=== PATIENT | female | born 1990 | race Caucasian/White ===

== ENCOUNTER 2020-09-02 15:11 | Outpatient (REF) | payer OTHER, SELFPAY ==
[2020-09-02 15:31] LABS: MANUAL DIFF FLAG NO
[2020-09-02 15:35] LABS: Basophils Absolute Auto 0.1 X10*3/uL (0.0-0.2); Basophils Percent Auto 0.7 % (0-2); Eosinophils Absolute Auto 0.3 X10*3/uL (0.0-0.4); Eosinophils Percent Auto 2.4 % (0-4); Hematocrit 41.1 % (37-47); Hemoglobin 13.6 g/dl (12.0-16.0); Imm Gran Abs Auto 0.03 X10*3/uL (0.00-0.03); Imm Gran Pct Auto 0.3 % (0.0-0.4); Lymphocytes Absolute Auto 3.5 X10*3/uL (1.2-4.9); Lymphocytes Percent Auto 32.1 % (20-40); Mean Corpuscular HGB Conc 33.1 g/dl (31.0-35.0); Mean Corpuscular Volume 90.7 fL (80-98); Mean Platelet Volume 10.4 fL (9.4-12.3); Monocytes Absolute Auto 0.8 X10*3/uL (0.1-1.2); Monocytes Percent Auto 7.1 % (2-11); Neutrophils Absolute Auto 6.2 X10*3/uL (2.0-8.3); Neutrophils Percent Auto 57.4 % (45-73); Platelet Count 327 X10*3/uL (160-400); Red Blood Count 4.53 X10*6/uL (4.20-5.50); Red Cell Distribution Width 12.6 % (11.0-16.0); White Blood Count 10.8 X10*3/uL (4.8-10.8)
[2020-09-02 15:56] LABS: Alanine Aminotransferase 15 U/L (0-31); Albumin Level 4.4 g/dL (3.5-5.0); Alkaline Phosphatase 77 U/L (39-117); Anion Gap 12 (12-20); Aspartate Amino Transferase 10 U/L (5-31); Bilirubin Total 0.2 mg/dL (0.0-1.0); Blood Urea Nitrogen 10 mg/dL (9-16); C Reactive Protein 1.72 mg/dL (< or = 0.50); Calcium 9.8 mg/dL (8.4-10.2); Carbon Dioxide 27 mmol/L (22-29); Chloride 103 mmol/L (96-108); Estimated Glomerular Filt Rate > 60; Glucose Random 105 mg/dL (60-115); Potassium 4.3 mmol/L (3.3-5.1); Sodium 138 mmol/L (135-145); Total Protein 7.5 g/dL (6.5-8.0)
[2020-09-02 16:17] LABS: Ferritin 120 ng/mL (10-122); TSH reflex Free T4 0.98 uIU/mL (0.32-4.0)
[2020-09-02 16:48] LABS: Erythrocyte Sedimentation Rate 5 MM/HR (0-20)
[2020-09-03 14:02] LABS: IgA 404 mg/dL (47-310); IgG 1142 mg/dL (600-1640); IgM 67 mg/dL (50-300)
[2020-09-03 21:46] LABS: Transglutaminase Ab IgG 1 U/mL; Transglutaminase IgA 1 U/mL
[2020-09-07 23:36] LABS: Histamine Plasma 1.5 ng/mL (< OR = 1.8)
== END 2020-09-02 15:12 | disposition home or self-care (01) ==
LOC: HO.LAB 15:11
PROVIDERS: Visit Provider Internal Medicine Gastroenterology
DX: R10.33 Periumbilical pain (principal); G89.29 Other chronic pain; K75.81 Nonalcoholic steatohepatitis (NASH); R19.7 Diarrhea, unspecified
CPT/HCPCS: 36415; 80053; 82728; 82784; 83088; 83516; 83520; 84443; 85025; 85652; 86140

== ENCOUNTER 2020-09-07 17:33 | Outpatient (REF) | payer OTHER, SELFPAY ==
[2020-09-08 08:40] LABS: CDIFF Ag Negative (Negative); CDIFF Internal ctrl Dots and bkg OK (V); CDiff Toxin Negative (Negative)
[2020-09-11 01:25] LABS: Fecal Fat Qualitative Abnormal (Normal)
[2020-09-15 21:48] LABS: Calprotectin, Fecal 7 mcg/g
== END 2020-09-07 17:34 | disposition home or self-care (01) ==
LOC: HO.LNP 17:33
PROVIDERS: Visit Provider Internal Medicine Gastroenterology
DX: R19.7 Diarrhea, unspecified (principal)
CPT/HCPCS: 82705; 83993; 87324; 87329; 87449

== ENCOUNTER 2020-10-13 09:39 | Day surgery (SDC) | payer OTHER, SELFPAY ==
[2020-10-06 14:35] VITALS: BMI 40.6
--- NOTE | 2020-10-12 10:48 | P.CONAN_ITS ---
Documented by User: Marysol Donohue 10/12/20 10:49 HPI - Anesthesia Eval Consult details Narrative: 30yo F for Upper Endoscopy and Colonoscopy PMFSH Active Problems Active Problems: All Active Problems (Updated 10/06/20 @ 14:39 by Kaye Monzon) Diarrhea (Acute) Past Medical History Medical History (Updated 10/06/20 @ 14:39 by Kaye Monzon) Anemia Arthritis Concussion COVID-19 vaccine administered Degenerative lumbar disc Depression GERD (gastroesophageal reflux disease) Heavy menstrual bleeding High cholesterol Hx of renal calculi Kidney stones Mood swings Nasal inflammation Obesity Panic attacks Rheumatoid arthritis Severe anxiety Tobacco use Vitamin D deficiency Surgical History Surgical History (Updated 07/20/20 @ 14:55 by JAMES Molina) H/O tooth extraction Social History Social History Patient Tobacco Use Status: Former Tobacco user Quit Date: 2019 Tobacco use type: Cigarette Years Smoked: 7 Use of substances other than those prescribed or required for medical reasons: No Substance Use Frequency: Daily Have you been hit, kicked, punched, or otherwise hurt by someone within the past year? If so, by whom?: No Are you DNR?: No Advance Directives: No Advance Directives Information Provided: No Advance Directives on File: No Recently lost weight without trying: No Eating poorly because of decreased appetite: No Nutrition Risks: No Nutritional Risk Patient : No FDLMP: 10/05/20 : No Poor oral hygiene: No (upper partial) Meds Allergies Allergy/AdvReac Type Severity Reaction Status Date / Time No Known Allergies Allergy Verified 10/06/20 14:40 Home Medications Medication Instructions Recorded Confirmed Last Taken Type cyanocobalamin (vitamin B-12) 50 mcg PO DAILY 10/06/20 10/06/20 Unknown History [Vitamin B-12] hydroxyzine pamoate 25 mg PO BEDTIME 10/06/20 10/06/20 Unknown History loratadine 10 mg PO DAILY 10/06/20 10/06/20 Unknown History multivitamin 1 tab PO DAILY 10/06/20 10/06/20 Unknown History norgestrel-ethinyl estradiol 1 tab PO DAILY 10/06/20 10/06/20 Unknown History [Edu (28)] phenylephrine HCl [Sudafed PE] 10 mg PO DAILY 10/06/20 10/06/20 Unknown History Exam Exam Date and Time: October 12, 2020 1048 Height,Weight and Vital Signs: Height 5 ft 4 in Weight 107.501 kg Assessment and Plan Assessment Anesthesia Assessment: Chart Reviewed Documented by User: Carin Hogue 10/13/20 10:49 [facility] Past Medical History Medical History (Updated 10/06/20 @ 14:39 by Kaye Monzon) Anemia Arthritis Concussion COVID-19 vaccine administered Degenerative lumbar disc Depression GERD (gastroesophageal reflux disease) Heavy menstrual bleeding High cholesterol Hx of renal calculi Kidney stones Mood swings Nasal inflammation Obesity Panic attacks Rheumatoid arthritis Severe anxiety Tobacco use Vitamin D deficiency Surgical History Surgical History (Updated 07/20/20 @ 14:55 by JAMES Molina) H/O tooth extraction Social History Social History Patient Tobacco Use Status: Former Tobacco user Quit Date: 2019 Tobacco use type: Cigarette Years Smoked: 7 Use of substances other than those prescribed or required for medical reasons: No Substance Use Frequency: Daily Have you been hit, kicked, punched, or otherwise hurt by someone within the past year? If so, by whom?: No Are you DNR?: No Advance Directives: No Advance Directives Information Provided: No Advance Directives on File: No Recently lost weight without trying: No Eating poorly because of decreased appetite: No Nutrition Risks: No Nutritional Risk Patient : No FDLMP: 10/05/20 : No Poor oral hygiene: No (upper partial) Meds Allergies Allergy/AdvReac Type Severity Reaction Status Date / Time No Known Allergies Allergy Verified 10/06/20 14:40 Home Medications Medication Instructions Recorded Confirmed Last Taken Type cyanocobalamin (vitamin B-12) 50 mcg PO DAILY 10/06/20 10/06/20 Unknown History [Vitamin B-12] hydroxyzine pamoate 25 mg PO BEDTIME 10/06/20 10/06/20 Unknown History loratadine 10 mg PO DAILY 10/06/20 10/06/20 Unknown History multivitamin 1 tab PO DAILY 10/06/20 10/06/20 Unknown History norgestrel-ethinyl estradiol 1 tab PO DAILY 10/06/20 10/06/20 Unknown History [Edu (28)] phenylephrine HCl [Sudafed PE] 10 mg PO DAILY 10/06/20 10/06/20 Unknown History Exam Airway Mallampati Class: II TM Dist: >3cm Neck ROM: Full Partial: Upper Heart: rrr Lungs: cta Assessment and Plan Assessment Anesthesia Assessment: Anesthesia Plan Discussed and Chart Reviewed Final Anesthetic Review NPO: Yes ASA Class: III Final Preanesthetic Review: No Changes in Pt Med Stat and Consent Obtained/Reviewed Patient Risk: Intermediate Procedure Risk: Intermediate Anesthetic Plan Anesthetic Plan: MAC: Disposition: Standard PACU
[2020-10-13 10:12] VITALS: BP 141/60; PULSE 71; RESP 18; TEMP 36.3; O2SAT 97
--- NOTE | 2020-10-13 10:14 | P.HPSUR_ITS ---
Pre-Procedural Eval Section A Date of Service: 10/13/20 Section B Chief Complaint: diarrhea Relevant Family History (Specify if Yes): No Relevant Social History: None Present Medications: see Short Stay Collaborative assessment (depression) Medical History: Significant History History of Previous Operations: No relevant previous surgery Allergies: Allergies Allergy/AdvReac Type Severity Reaction Status Date / Time No Known Allergies Allergy Verified 10/06/20 14:40 Review of Systems Sugical H&P ROS: Negative: Constitution, Cardiovascular, Respiratory, Neurological, Psychiatric, Hem-Onc, Allergic/Immunologic, Gastrointestinal, Gen itourinary, Musculoskeletal, Integumentary, Endocrine and Eyes/Ears/Nose/Throat Exam Surgical H&P Exam: Normal: HEENT, Normal: Heart, Normal: Lungs, Normal: Extremities, Normal: Abdomen, Normal: Skin and Normal: Neurological Plan Diagnosis/Plan: Unchanged I have reviewed the history and physical and performed a pertinent physical examination on my patient. No changes have occurred unless specified. EGD and colonoscopy for chronic diarrhea.
[2020-10-13] MEDS: Lactated Ringers 1,000 ML 100 ML IVCONT (10:32)
[2020-10-13 10:33] LABS: UPreg QC Valid YES; Urine Pregnancy NEGATIVE (NEGATIVE)
--- NOTE | 2020-10-13 10:50 | P.OP_ITS ---
Operative Note Operative Note Date of Service: 10/13/20 Narrative: Operative Information Procedure Description: EGD, Colonoscopy FLEXIBLE TRANSORAL UPPER GASTROINTESTINAL ENDOSCOPY AND COLONOSCOPY PROCEDURE NOTE UPPER ENDOSCOPY Consent: Indications for the procedure and potential complications of bleeding, perforation, reaction to medications and missed diagnosis were discussed with the patient and informed consent was obtained. Instrument: Olympus GIF H 190 J mid size upper endoscope Monitoring: Vital signs and clinical assessment, continuous EKG monitoring, Pulse oximetry, Carbon Dioxide monitoring and blood pressure monitoring were done throughout the procedure. Procedure: The patient was placed in the left lateral decubitis position and pre-procedure medications were administered and a bite block was placed. The endoscope was inserted into the mouth and advanced under direct vision to the third part of duodenum. A careful inspection was made as the upper endoscope was withdrawn including a retroflexed examination of the proximal stomach; Findings and interventions are described below. Findings: Larynx:normal Esophagus: GE junction at 40 cm, diaphragm hiatus at 40 cm, mild esophagitis, possible short segment barretts,bx taken Stomach: Granular mucosa. Biopsies were obtained. Grade 2 flap valve on retroflexed examination of the cardia. Duodenum: Normal bulb and descending duodenum, bx taken Intervention: Biopsies as noted above COLONOSCOPY Instrument: Olympus variable stiffness pediatric scope 190L Colonoscopy Monitoring: Vital signs and clinical assessment, continuous EKG monitoring, Pulse oximetry, Carbon Dioxide monitoring and blood pressure monitoring were done throughout the procedure. Colon withdrawal time was 14 minutes. Procedure: The patient was placed in the left lateral decubitis position and pre-procedure medications were administered. After a digital rectal examination of the ano-rectum, the video colonoscope was inserted into the rectum and advanced through the colon to the cecum/TI. The colonoscope was slowly withdrawn in a retrograde panoramic fashion and the colon mucosa was carefully examined including a retroflexed view of the rectum. Findings and interventions are described below. Procedure Difficulty:easy Findings: Terminal Ileum-normal, bx taken Cecum:normal Ascending Colon: normal Transverse Colon -8-10 mm sessile polyp removed with cold snare Descending Colon:normal Sigmoid Colon: 8-10 mm sessile polyp removed with forceps Rectum: Retroflexion with small internal hemorrhoids, grade I Random colon bx taken Anorectum - normal Colon preparation: [place] Bowel Preparation Scale Right colon; 3 Transverse colon: 3 Left colon; 3 (0 = Unprepared colon segment with mucosa not seen due to solid stool that cannot be cleared. 1 = Portion of mucosa of the colon segment seen, but other areas of the colon segment not well seen due to staining, residual stool and/or opaque liquid. 2 = Minor amount of residual staining, small fragments of stool and/or opaque liquid, but mucosa of colon segment seen well. 3 = Entire mucosa of colon segment seen well with no residual staining, small fragments of stool or opaque liquid) Impression and Post Procedure Diagnosis: Endoscopy Findings: esophagitis possible barretts Colonoscopy Findings: polyps internal hemorrhoids diverticular disease Plan: Await Pathology results Repeat Colonoscopy in 5 years if tubular adenoms, 10 yrs if hyperplastic/benign or earlier if clinically indicated High fiber diet leaflet avoid straining at stool, epsom salts and sitz bath, anusol supps or cream Above findings were reviewed with the patient and relevant handouts were provided if indicated.
--- NOTE | 2020-10-13 10:50 | PM.OP ---
Brief Operative Note Date of Service: 10/13/20 Pre-op diagnosis: diarrhea Post-op diagnosis: same Procedure: see op note Surgeon: Inder Hinson MD Anesthesia: MAC Was an Clinical Consultant used for this Procedure?: No Estimated blood loss (mL): 0 Condition: stable Disposition: PACU
[2020-10-13 11:44] VITALS: BP 104/69; PULSE 70; RESP 16; TEMP 36.4; O2SAT 97
[2020-10-13 11:59] VITALS: BP 106/59; PULSE 58; RESP 16; O2SAT 96
[2020-10-13 12:14] VITALS: BP 121/69; PULSE 70; RESP 18; O2SAT 99
[2020-10-13 12:28] VITALS: BP 115/74; PULSE 57; RESP 18; O2SAT 96
[2020-10-13] MEDS: ondansetron HCL 4 MG/2 ML VIAL IVPUSH (12:39)
[2020-10-13 12:57] VITALS: BP 109/68; PULSE 68; RESP 20; TEMP 36.9; O2SAT 98
[2020-10-19 21:11] LABS: Lactase 40.2 (15.0-45.5); Maltase 151.9 (100.0-224.4); Sucrase 46.4 (25.0-69.9)
== END 2020-10-13 14:00 | disposition home or self-care (01) ==
PROVIDERS: Nurse Practitioner; Visit Provider Internal Medicine Gastroenterology
PROC: (CPT 45385; principal; 2020-10-13 10:50)
DX: R19.7 Diarrhea, unspecified (principal); D12.3 Benign neoplasm of transverse colon; K63.5 Polyp of colon; K64.0 First degree hemorrhoids; K29.50 Unspecified chronic gastritis without bleeding; B96.81 Helicobacter pylori [H. pylori] as the cause of diseases classified elsewhere; K21.9 Gastro-esophageal reflux disease without esophagitis; K20.80 Other esophagitis without bleeding; K44.9 Diaphragmatic hernia without obstruction or gangrene; M06.9 Rheumatoid arthritis, unspecified; F32.9 Major depressive disorder, single episode, unspecified; Z87.442 Personal history of urinary calculi; F17.210 Nicotine dependence, cigarettes, uncomplicated; Z88.0 Allergy status to penicillin; Z79.899 Other long term (current) drug therapy
CPT/HCPCS: 45385; 45380; 43239; 36415; 81025; 82657; 88305; 88342; J2250; J2405

== ENCOUNTER → 2020-10-19 12:27 | Outpatient (BNVA) | payer OTHER, SELFPAY | PROVIDERS: Visit Provider Internal Medicine Gastroenterology ==

== ENCOUNTER 2020-11-04 15:13 | Outpatient (REF) | payer OTHER, SELFPAY ==
--- NOTE | ~2020-11-04 | US_ITS ---
EXAMINATION: ULTRASOUND PELVIS AND TRANSVAGINAL CLINICAL INFORMATION: Left lower quadrant pain and diarrhea. LMP 10/08/2020. COMPARISON: None TECHNIQUE: Transabdominal and transvaginal imaging of pelvis was performed. FINDINGS: The uterus is anteverted measuring 8.0 cm in length, 3.1 cm in AP and 3.9 cm in transverse dimension. Endometrial thickness is 0.72 cm. The uterus is homogeneous in echotexture. The right ovary measures 4.5 x 2.7 x 3.9 cm and volume 24.4 mL. There are multiple prominent follicles visualized. The left ovary measures 5.5 x 2.4 x 3.5 cm and volume 24.1 mL. There are multiple prominent follicles visualized. There is a small amount of fluid seen in the endocervical canal. There are small nabothian cysts visualized in the cervix. Echogenic microcalcifications are visualized in the lower uterine segment. US/US pelvic and transvaginal IMPRESSION: Unremarkable uterus. Multiple bilateral ovarian follicles. Small nabothian cysts and a small amount of free fluid in the cervical canal. There are echogenic microcalcifications in lower uterine segment.
== END 2020-11-04 15:14 | disposition home or self-care (01) ==
LOC: HO.HMGCX 15:13
PROVIDERS: Visit Provider Internal Medicine Gastroenterology
DX: R11.2 Nausea with vomiting, unspecified (principal); R19.7 Diarrhea, unspecified
CPT/HCPCS: 76830; 76856

== ENCOUNTER 2020-11-22 15:27 | Outpatient (REF) | payer OTHER, SELFPAY ==
[2020-11-23 15:01] LABS: H Pylori Breath Test NOT DETECTED (NOT DETECTED)
== END 2020-11-22 15:28 | disposition home or self-care (01) ==
LOC: HO.LNP 15:27
PROVIDERS: PCP Internal Medicine; Visit Provider Internal Medicine Gastroenterology
DX: R11.2 Nausea with vomiting, unspecified (principal); R19.7 Diarrhea, unspecified; Z11.0 Encounter for screening for intestinal infectious diseases
CPT/HCPCS: 83013

== ENCOUNTER → 2021-02-21 07:48 | Outpatient (REF) | payer OTHER, SELFPAY ==
--- NOTE | ~2021-02-21 | NM_ITS ---
EXAMINATION: NM RADIONUCLIDE SOLID FOOD GASTRIC EMPTYING 4-HOUR STUDY CLINICAL INFORMATION: Early satiety. COMPARISON: None. TECHNIQUE: A standard meal consisting of 4 oz of Egg Beaters brand tagged with 1.0 microcuries Tc-99m Sulfur Colloid, 8 oz water and 2 slices of toast with jelly was administered orally to the patient. Images were obtained using a dual head gamma camera in the anterior and posterior projections over of the stomach immediately post ingestion and at hourly intervals up to 4 hours post ingestion. The anterior and posterior counts at each time interval were averaged using the geometric mean and expressed as percentage of the immediate post ingestion counts. FINDINGS: There is good visualization of activity in the stomach immediately post ingestion. As the study progresses, there is good clearance of activity from the stomach and visualization of progressively increasing small bowel activity. By the end of the study, there is almost no retention noted in the stomach. Retention in the stomach at each time interval was: 1 hour 78% (normal 37%-90%) 2 hours 54% (normal 30%-60%) 3 hours 31% 4 hours 12% (normal 0%-10%) NM/AL gastric emptying study IMPRESSION: Borderline normal 4-hour solid food gastric emptying study.
== END ==
LOC: HO.NUCMED 07:48
PROVIDERS: Visit Provider Internal Medicine Gastroenterology
DX: R68.81 Early satiety (principal)
CPT/HCPCS: 78264; A9541

== ENCOUNTER 2022-01-18 06:38 | Emergency (ER) | payer OTHER, SELFPAY ==
--- NOTE | ~2022-01-18 | XR_ITS ---
EXAMINATION: XR LUMBOSACRAL SPINE CLINICAL INFORMATION: Pain COMPARISON: None TECHNIQUE: Three views of the lumbosacral spine. FINDINGS: There are 5 nonrib-bearing lumbar vertebra. There is no evidence of acute fracture, significant spondylolisthesis, or spondylolysis. Pedicles intact. Sacroiliac joints unremarkable. XR/XR lumbar spine 2-3V IMPRESSION: No significant abnormality of the lumbosacral spine identified.
[2022-01-18 06:48] VITALS: BP 175/101; PULSE 74; RESP 18; TEMP 36.4; O2SAT 100; BMI 37.8
--- NOTE | 2022-01-18 06:54 | ED.BACK ---
HPI - Back Pain/Injury General Chief Complaint: Back Pain/Injury Stated Complaint: Back pain/R hip pain Time Seen by Provider: 01/18/22 06:52 Source: patient Mode of arrival: ambulatory Limitations: no limitations History of Present Illness HPI Narrative: 31 yo patient hx of gastroparesis on PPI, DDD of lumbar spine here with pain on R side of lower back following twisting injury on Sunday trying to help her mother. She has had pain in right lower back into buttock and right lower leg since then. Taking motrin without relief. MD elicited complaint: back pain and back injury Pertinent past history: prior back pain Onset (ago): day(s) (Sunday) Timing: progressively worsening Severity: severe Similar Symptoms Previously: No Quality: sharp Location: lumbar spine Radiation: buttocks and right upper leg Exacerbating factors: movement, walking, coughing/sneezing and lifting Relieving factors: immobilization Context: while lifting, turning/twisting and bending Associated symptoms: denies other symptoms Treatments prior to arrival: cold therapy, heat therapy and NSAIDS Work related injury: No Related Data Home Medications Medication Instructions Recorded Confirmed cyanocobalamin (vitamin B-12) 25 50 mcg PO DAILY 10/06/20 10/06/20 mcg tablet hydroxyzine pamoate 25 mg capsule 25 mg PO BEDTIME 10/06/20 10/06/20 loratadine 10 mg tablet 10 mg PO DAILY 10/06/20 10/06/20 multivitamin 1 tab PO DAILY 10/06/20 10/06/20 norgestrel 0.3 mg-ethinyl 1 tab PO DAILY 10/06/20 10/06/20 estradiol 30 mcg tablet (Edu (28)) phenylephrine HCl 10 mg tablet 10 mg PO DAILY 10/06/20 10/06/20 (Sudafed PE) Previous Rx's Medication Instructions Recorded bisacodyl 5 mg tablet,delayed 10 mg PO ONCE 1 day #2 tabs 10/12/20 release (Dulcolax (bisacodyl)) polyethylene glycol 3350 17 238 g PO ONCE 1 day #238 grams 10/12/20 gram/dose oral powder (Miralax) amoxicillin 500 mg capsule 1,000 mg PO BID 2 weeks #56 caps 10/15/20 levofloxacin 250 mg tablet 250 mg PO DAILY #14 tabs 10/15/20 pantoprazole 20 mg tablet,delayed 20 mg PO BID 14 days #28 tabs 10/15/20 release rifaximin 550 mg tablet 550 mg PO BID #20 tabs 01/20/21 ondansetron 4 mg disintegrating 4 mg PO Q8H PRN nausea and 02/16/21 tablet vomiting #30 tabs nortriptyline 10 mg/5 mL oral 10 mg (5 mL) PO BEDTIME #473 mL 03/02/21 solution esomeprazole magnesium 40 mg 40 mg PO DAILY #30 caps 06/20/21 capsule,delayed release (Nexium) nortriptyline 10 mg capsule 10 mg PO BEDTIME #60 caps 09/20/21 diazepam 5 mg tablet (Valium) 5 mg PO TID PRN muscle spasm #12 01/18/22 tabs famotidine 20 mg tablet (Pepcid) 20 mg PO DAILY PRN abdominal 01/18/22 discomfort #30 tabs lidocaine 5 % topical patch 1 patch topical DAILY #30 ea 01/18/22 prednisone 20 mg tablet 40 mg PO DAILY 5 days #10 tabs 01/18/22 Allergies Allergy/AdvReac Type Severity Reaction Status Date / Time Seasonal Allergies Allergy Mild runny Verified 11/22/20 15:40 nose, sinus infection, congestion Review of Systems Review of Systems: Constitutional : No Weight loss, No Fever, No Chills, Cardiovascular : No Chest Pain, No SOB Respiratory : No Cough, No Dyspnea Gastrointestinal : No Nausea, No Vomiting, No Diarrhea, No abdominal Pain, No Hematochezia, No Melena Genitourinary : No Dysuria, No Urinary Frequency, No Hematuria, No Urinary Incontinence, Musculoskeletal : positive back pain Skin : No Skin Lesions, No rash Neuro : No Weakness, No Numbness, No Paresthesias, no loss of bowel or bladder incontinence, no saddle anesthesia [facility] Past Medical History Attestation statement: The following information was validated with the patient. Medical History Anemia Arthritis Concussion COVID-19 vaccine administered Degenerative lumbar disc Depression GERD (gastroesophageal reflux disease) Heavy menstrual bleeding High cholesterol Hx of renal calculi Kidney stones Mood swings Nasal inflammation Obesity Panic attacks Rheumatoid arthritis Severe anxiety Tobacco use Vitamin D deficiency Surgical History H/O colonoscopy H/O esophagogastroduodenoscopy H/O tooth extraction Family History Family History Mother Diabetes COPD (chronic obstructive pulmonary disease) Vitamin D deficiency Active asthma Sleep apnea Father Cancer Vitamin D deficiency Depression Bipolar 1 disorder Anxiety PTSD (post-traumatic stress disorder) HTN (hypertension) Brother Active asthma Hiatal hernia Depression Maternal Grandmother Blind COPD (chronic obstructive pulmonary disease) Breast mass Brain tumor Lung mass Atrial fib/flutter, transient Depression Anxiety Paternal Grandmother History of quadruple bypass Dementia Skin carcinoma Paternal Grandfather Cancer Skin carcinoma Maternal Grandfather Skin melanoma Social History Social History Patient Tobacco Use Status: Former Tobacco user Quit Date: 2019 Tobacco use type: Cigarette Years Smoked: 7 Advance Directives: No Advance Directives Information Provided: Yes Physical Exam Vital Signs: Vital Signs: Last Vital Signs Temp 97.5 F 01/18/22 06:48 Pulse 74 01/18/22 06:48 Resp 18 01/18/22 06:48 BP 175/101 H 01/18/22 06:48 Pulse Ox 100 01/18/22 06:48 O2 Del Method 01/18/22 06:48 BMI result Body Mass Index 37.8 Appearance: Alert. Oriented X3. No acute distress. Eyes: Pupils equal, round and reactive to light. ENT: Pharynx normal. Neck: Normal inspection. Neck supple. CVS: Normal heart rate and rhythm. Pulses normal. Respiratory: No respiratory distress. Breath sounds normal. Abdomen: Soft and nontender. Back: ttp along R lower lumbar lateral paraspinals Skin: Skin warm and dry. Normal skin color. Normal skin turgor. Extremities: No lower extremity edema. No calf ttp Neuro: Oriented X 3. No motor deficit. No sensory deficit. 2+ DTR patella and achilles L5 5/5 bilaterally SILT inner thigh MDM - Back Pain/Injury MDM Narrative Medical decision making narrative: 31 yo female with hx of back pain and gastroparesis here with R sided back pain no b/b incontinence no saddle anesthesia no red flags on exam. The patient likely has disc herniation. At this time will need xray, start on steroids, PO valium. Stable for DC pending xrays Discharge Plan Discharge Clinical Impression: Lumbar radiculopathy Patient Disposition: Home, Self-Care Instructions: Acute Low Back Pain (ED), Lumbar Radiculopathy (ED) Additional Instructions: return to ED for any worsening symptoms or concerns if not better follow up with primary care doctor for physical therapy referral FINDINGS: There are 5 nonrib-bearing lumbar vertebra. There is no evidence of acute fracture, significant spondylolisthesis, or spondylolysis. Pedicles intact. Sacroiliac joints unremarkable. XR/XR lumbar spine 2-3V IMPRESSION: No significant abnormality of the lumbosacral spine identified Prescriptions: New prednisone 20 mg tablet 40 mg PO DAILY 5 Days Qty: 10 0RF famotidine [Pepcid] 20 mg tablet 20 mg PO DAILY PRN (Reason: abdominal discomfort) Qty: 30 0RF diazepam [Valium] 5 mg tablet 5 mg PO TID PRN (Reason: muscle spasm) Qty: 12 0RF Rx Instructions: partial fill is okay lidocaine 5 % adhesive patch,medicated 1 patch topical DAILY Qty: 30 0RF Rx Instructions: leave on most painful area for up to 12 hrs No Action bisacodyl [Dulcolax (bisacodyl)] 5 mg tablet,delayed release (DR/EC) 10 mg PO ONCE 1 Days Qty: 2 0RF Rx Instructions: take orally as directed prior to colonoscopy polyethylene glycol 3350 [Miralax] 17 gram/dose powder 238 g PO ONCE 1 Days Qty: 238 0RF Rx Instructions: take orally as directed prior to colonoscopy pantoprazole 20 mg tablet,delayed release (DR/EC) 20 mg PO BID 14 Days Qty: 28 0RF amoxicillin 500 mg capsule 1,000 mg PO BID 14 Days Qty: 56 0RF levofloxacin 250 mg tablet 250 mg PO DAILY Qty: 14 0RF Rx Instructions: Take with breakfast rifaximin 550 mg tablet 550 mg PO BID Qty: 20 0RF ondansetron 4 mg tablet,disintegrating 4 mg PO Q8H PRN (Reason: nausea and vomiting) Qty: 30 1RF nortriptyline 10 mg/5 mL solution 10 mg PO BEDTIME Qty: 473 2RF esomeprazole magnesium [Nexium] 40 mg capsule,delayed release(DR/EC) 40 mg PO DAILY Qty: 30 3RF nortriptyline 10 mg capsule 10 mg PO BEDTIME Qty: 60 1RF multivitamin Tablet 1 tab PO DAILY [place]selle (28) 0.3-30 mg-mcg Tablet 1 tab PO DAILY loratadine 10 mg Tablet 10 mg PO DAILY hydroxyzine pamoate 25 mg Capsule 25 mg PO BEDTIME Vitamin B-12 25 mcg Tablet 50 mcg PO DAILY phenylephrine HCl [Sudafed PE] 10 mg Tablet 10 mg PO DAILY Stand Alone Forms: Work/School Release Interventions: ED Discharge Assessment Last Done: 01/18/22 08:23 Discharge Date/Time: 01/18/22 08:25
[2022-01-18] MEDS: Lidocaine 4 % Patch ADH..PATCH 1 PATCH TRANSDERMA (07:14)
== END 2022-01-18 08:25 | disposition home or self-care (01) ==
PROVIDERS: Emergency Provider Emergency Medicine
DX: M54.16 Radiculopathy, lumbar region (principal); M54.50 Low back pain, unspecified; Z87.891 Personal history of nicotine dependence
CPT/HCPCS: 72100; 99282; 99283

== ENCOUNTER 2022-03-07 05:49 | Outpatient (REF) | payer OTHER, SELFPAY ==
[2022-03-07 06:12] LABS: COVID-19 Test Positive (Negative); IDNOW Serial# BCCEAD1C
== END 2022-03-07 05:50 | disposition home or self-care (01) ==
LOC: HO.LAB 05:49
PROVIDERS: Visit Provider Internal Medicine
DX: Z20.822 Contact with and (suspected) exposure to COVID-19 (principal)
CPT/HCPCS: 87635

== ENCOUNTER 2022-06-06 06:26 | Emergency (ER) | payer OTHER, SELFPAY ==
--- NOTE | ~2022-06-06 | CT_ITS ---
EXAMINATION: CT ABDOMEN AND PELVIS WITH CONTRAST CLINICAL INFORMATION: Left lower quadrant pain. COMPARISON: None TECHNIQUE: Multidetector volumetric images were obtained from the superior aspect of the liver through the pubic symphysis following administration 85 mL of Omnipaque 350 intravenous contrast. Sagittal and coronal reformatted images were obtained on the technologist's workstation. Oral contrast: No This CT examination was performed using dose optimization techniques as appropriate, variously including the following: *Automated exposure control *Adjustment of mA and/or kV according to patient size (this includes techniques or standardized protocols for targeted exams where dose is matched to indication/reason for exam; i.e. extremities or head) *Use of iterative reconstruction technique DLP: 672 mGy-cm FINDINGS: LUNG BASES: Normal. No pulmonary consolidation or pleural effusion. LIVER: The liver has normal size, shape, and attenuation. No evidence of liver mass. GALLBLADDER AND BILIARY TREE: Gallbladder is without radiopaque stones, wall thickening or pericholecystic fluid. No dilated bile ducts. PANCREAS: Normal. No edema, pancreatic ductal dilatation or mass. SPLEEN: Normal. ADRENAL GLANDS: Normal. KIDNEYS AND URETERS: Kidneys are normal in size and enhance symmetrically. No hydronephrosis or perinephric edema. Note that the excretion of iodinated contrast into the nondilated collecting systems could interfere with detection of any small renal stones. No evidence of any large renal calculi. The ureters are normal. BLADDER: Normal. No calculi or wall thickening. BOWEL AND PERITONEUM: Stomach is unremarkable. No dilated loops of bowel. The appendix is normal. There is lack of distention of loops of small and large bowel. No overt bowel wall thickening or mesenteric fat stranding. No free fluid or pneumoperitoneum. ABDOMINAL WALL: Unremarkable. VASCULATURE: Normal. LYMPH NODES: No pathologic sized lymph nodes in the abdomen or pelvis. No inguinal lymphadenopathy. PELVIC VISCERA: The anteflexed, anteverted uterus is normal in size. No evidence of uterine leiomyoma. 0.5 cm nabothian cyst of the cervix. The ovaries are unremarkable. No pelvic free fluid. Multiple phleboliths are present within the pelvis. MUSCULOSKELETAL: Unremarkable. CT/CT abdomen pelvis w IV con IMPRESSION: No specific source of abdominal pain is identified. No evidence of acute inflammation or obstruction along the gastrointestinal tract. No abdominal free fluid, mass or lymphadenopathy.
[2022-06-06 06:29] VITALS: BP 141/91; PULSE 97; RESP 16; TEMP 36.6; O2SAT 97; BMI 38.2
[2022-06-06 07:10] LABS: MANUAL DIFF FLAG NO
[2022-06-06 07:14] LABS: Basophils Absolute Auto 0.1 X10*3/uL (0.0-0.2); Basophils Percent Auto 1.2 % (0-2); Eosinophils Absolute Auto 0.3 X10*3/uL (0.0-0.4); Eosinophils Percent Auto 2.8 % (0-4); Hematocrit 46.2 % (37.0-47.0); Hemoglobin 14.9 g/dl (12.0-16.0); Imm Gran Abs Auto 0.03 X10*3/uL (0.00-0.03); Imm Gran Pct Auto 0.3 % (0.0-0.4); Lymphocytes Absolute Auto 2.4 X10*3/uL (1.2-4.9); Mean Corpuscular HGB Conc 32.3 g/dl (31.0-35.0); Mean Corpuscular Hemoglobin 29.4 pg (27.0-33.0); Mean Corpuscular Volume 91.3 fL (80.0-98.0); Mean Platelet Volume 11.2 fL (9.4-12.3); Monocytes Absolute Auto 0.8 X10*3/uL (0.1-1.2); Monocytes Percent Auto 8.3 % (2-11); Neutrophils Absolute Auto 5.6 x10*3/uL (2.0-8.3); Neutrophils Percent Auto 61.4 % (45-73); Platelet Count 373 X10*3/uL (160-400); Red Blood Count 5.06 X10*6/uL (4.20-5.50); Red Cell Distribution Width 12.8 % (11.0-16.0); White Blood Count 9.2 X10*3/uL (4.8-10.8)
[2022-06-06 07:15] LABS: Appearance Urine Clear; Color Urine Yellow; Glucose Urine UA Negative (Negative); Leukocyte Esterase Urine Negative (Negative); Nitrite Urine Negative (Negative); PH 6.5 (5.0-9.0); Specific Gravity - Urine 1.025 (1.005-1.025); Urine Blood Negative (Negative); Urine Ketones Negative (Negative); Urine Protein Negative (Neg-Trace)
[2022-06-06 07:16] LABS: UPreg QC Valid YES; Urine Pregnancy NEGATIVE (NEGATIVE)
--- NOTE | 2022-06-06 07:24 | PC.NURSE ---
assumed care of patient, pt resting comfortably, VSS, awaiting lab resutls
[2022-06-06 07:29] LABS: Anion Gap 14 (12-20); Blood Urea Nitrogen 17 mg/dL (9-16); Calcium 9.1 mg/dL (8.4-10.2); Carbon Dioxide 23 mmol/L (22-29); Chloride 108 mmol/L (96-108); Creatinine Clr Calc Pharmacy 112.2; Estimated Glomerular Filt Rate > 60; Glucose Random 95 mg/dL (60-115); Potassium 4.5 mmol/L (3.3-5.1); Sodium 140 mmol/L (135-145)
[2022-06-06 07:52] LABS: Influenza A PCR NEGATIVE (Negative); Influenza B PCR NEGATIVE (Negative); Resp Syncy Virus RNA Qual PCR NEGATIVE (Negative); SARS COV2 PCR INHOUSE NEGATIVE (Negative)
--- NOTE | 2022-06-06 08:06 | ED.ABDPAIN ---
HPI - Abdominal Pain General Chief Complaint: Abdominal Pain Stated Complaint: Lower abdominal pain, vomiting & diarrhea Time Seen by Provider: 06/06/22 08:04 Source: patient Mode of arrival: ambulatory Limitations: no limitations History of Present Illness HPI narrative: 32-year-old female previously healthy here with complaints of left lower abdominal pain for the last 3 days with vomiting and diarrhea a since yesterday. Patient reports 2 episodes of vomiting nonbloody and nonbilious. Patient has had nausea. She reports about 5-6 episodes of diarrhea overnight. This is nonbloody. Patient has also had chills. No fever, cough or cold symptoms. No recent travel or sick contact. 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 Related Data Home Medications Medication Instructions Recorded Confirmed cyanocobalamin (vitamin B-12) 25 50 mcg PO DAILY 10/06/20 10/06/20 mcg tablet hydroxyzine pamoate 25 mg capsule 25 mg PO BEDTIME 10/06/20 10/06/20 loratadine 10 mg tablet 10 mg PO DAILY 10/06/20 10/06/20 multivitamin 1 tab PO DAILY 10/06/20 10/06/20 norgestrel 0.3 mg-ethinyl 1 tab PO DAILY 10/06/20 10/06/20 estradiol 30 mcg tablet (Adalbertoseanthonye (28)) phenylephrine HCl 10 mg tablet 10 mg PO DAILY 10/06/20 10/06/20 (Sudafed PE) Previous Rx's Medication Instructions Recorded bisacodyl 5 mg tablet,delayed 10 mg PO ONCE 1 day #2 tabs 10/12/20 release (Dulcolax (bisacodyl)) polyethylene glycol 3350 17 238 g PO ONCE 1 day #238 grams 10/12/20 gram/dose oral powder (Miralax) ondansetron 4 mg disintegrating 4 mg PO Q8H PRN nausea and 02/16/21 tablet vomiting #30 tabs nortriptyline 10 mg/5 mL oral 10 mg (5 mL) PO BEDTIME #473 mL 03/02/21 solution esomeprazole magnesium 40 mg 40 mg PO DAILY #30 caps 06/20/21 capsule,delayed release (Nexium) diazepam 5 mg tablet (Valium) 5 mg PO TID PRN muscle spasm #12 01/18/22 tabs lidocaine 5 % topical patch 1 patch topical DAILY #30 ea 01/18/22 prednisone 20 mg tablet 40 mg PO DAILY 5 days #10 tabs 01/18/22 nortriptyline 10 mg capsule 10 mg PO BEDTIME #60 caps 02/13/22 famotidine 20 mg tablet (Pepcid) 20 mg PO DAILY PRN abdominal 06/02/22 discomfort #30 tabs dicyclomine 10 mg capsule 10 mg PO TID PRN abdominal pain 06/06/22 #14 caps ondansetron 4 mg disintegrating 4 mg PO Q6H PRN nausea and 06/06/22 tablet vomiting #14 tabs Allergies Allergy/AdvReac Type Severity Reaction Status Date / Time Seasonal Allergies Allergy Mild runny Verified 11/22/20 15:40 nose, sinus infection, congestion Review of Systems Review of Systems Yes all other systems are reviewed and are negative Constitutional: Reports no additional constitutional complaints, Denies body ache(s), Denies chills, Denies fever(s), Denies headache(s) and Denies weakness Eyes: Reports no additional eye complaints and Denies change in vision Reports system reviewed and no additional complaints, except as documented, Denies dizziness, Denies headache(s), Denies nasal congestion, Denies nasal discharge and Denies neck pain Cardiovascular: Reports no additional cardiovascular complaints, Denies chest pain, Denies leg edema and Denies dyspnea Respiratory: Reports no additional respiratory complaints, Denies cough and Denies dyspnea Gastrointestinal: Reports no additional gastrointestinal complaints, Reports abdominal pain, Reports diarrhea, Reports nausea and Reports vomiting Genitourinary: Reports no additional female genitourinary complaints and Denies urinary incontinence Musculoskeletal: Reports no additional musculoskeletal complaints, Denies back pain, Denies arthralgias, Denies joint swelling, Denies neck pain, Denies numbness and Denies tingling Skin/Breast: Reports system reviewed and no additional complaints, except as docu and Denies rash Reports system reviewed and no additional complaints, except as documented, Denies dizziness, Denies headache(s), Denies numbness, Denies tingling and Denies weakness [facility] Past Medical History Attestation statement: The following information was validated with the patient. Source: old records reviewed and nursing notes reviewed Medical History Anemia Arthritis Concussion COVID-19 vaccine administered Degenerative lumbar disc Depression GERD (gastroesophageal reflux disease) Heavy menstrual bleeding High cholesterol Hx of renal calculi Kidney stones Mood swings Nasal inflammation Obesity Panic attacks Rheumatoid arthritis Severe anxiety Tobacco use Vitamin D deficiency Surgical History H/O colonoscopy H/O esophagogastroduodenoscopy H/O tooth extraction Family History Family History Mother Diabetes COPD (chronic obstructive pulmonary disease) Vitamin D deficiency Active asthma Sleep apnea Father Cancer Vitamin D deficiency Depression Bipolar 1 disorder Anxiety PTSD (post-traumatic stress disorder) HTN (hypertension) Brother Active asthma Hiatal hernia Depression Maternal Grandmother Blind COPD (chronic obstructive pulmonary disease) Breast mass Brain tumor Lung mass Atrial fib/flutter, transient Depression Anxiety Paternal Grandmother History of quadruple bypass Dementia Skin carcinoma Paternal Grandfather Cancer Skin carcinoma Maternal Grandfather Skin melanoma Social History Social History Patient Tobacco Use Status: Former Tobacco user Quit Date: 2019 Tobacco use type: Cigarette Years Smoked: 7 Advance Directives: No Advance Directives Information Provided: No Physical Exam ED Vital Signs: Vital Signs - 24 hr 06/06/22 06:29 06/06/22 08:08 06/06/22 10:34 Temperature 97.8 F 97.9 F Pulse Rate 97 68 69 Respiratory Rate 16 14 16 Blood Pressure 141/91 H 125/77 129/79 Pulse Oximetry 97 96 98 Oxygen Delivery Method Room Air Room Air Room Air BMI result Body Mass Index 38.2 Const General: cooperative, healthy appearing, comfortable and no acute distress Orientation/consciousness: patient oriented x3 Limitations: no limitations HENMT Head: Yes normal to inspection Ears: hearing grossly normal bilaterally Eyes General: appearance normal, both eyes and all related structures Pupils: Equal, round and reactive pupils present Neck Neck: Yes normal visual inspection, Yes full ROM, Yes no lymphadenopathy and Yes no meningeal signs Chest Chest palpation & inspection: normal inspection of the chest Resp Effort & Inspection: normal respiratory effort Auscultation: clear to auscultation bilaterally Cardio Rate: regular rate Rhythm: regular rhythm Peripheral pulses: Peripheral pulses 2+ throughout GI Inspection: Yes normal to inspection Palpation (GI): Soft to palpation and Tenderness to palpation present (GI) (LLQ -no rebound or guarding ) Auscultation: normal bowel sounds General: Yes no CVA tenderness Back/Spine/Pelvis Back: no CVA tenderness Thoracic/Lumbar Spine: thoracic and lumbar spine normal to inspection Skin General skin exam: no rashes or lesions noted Neuro General: patient oriented x3, moves all extremities and no meningeal signs Cranial nerves: Yes Equal, round and reactive pupils present Cognition (Neuro): normal cognition Gait exam (Neuro): Normal gait present Extrem General: Yes normal to inspection, Yes no pedal edema and Yes no calf tenderness Course Course Course Narrative: Labs and UA are unremarkable. CT shows no acute finding. Likely viral gastroenteritis. Patient tolerating p.o. with no additional vomiting episodes. Will discharge home with Zofran p.r.n., Bentyl p.r.n.. Reviewed worrisome signs and symptoms of when to return to the emergency room. Comfortable plan for discharge home. Medical Decision Making Medical Decision Making [facility] Narrative: This is a 32-year-old female with 3 days of left lower quadrant abdominal pain with vomiting and diarrhea or last 24 hours. Patient also with subjective fevers and chills. On exam patient with tenderness the left lower quadrant with no rebound or guarding. Vitals stable. Overall nontoxic appearing Will obtain labs, UA, CT Will give antiemetics, analgesia, IV fluid Differential Diagnosis Differential Diagnoses: The differential diagnosis associated with the presentation includes Diverticulitis, gastroenteritis Less likely appendicitis Lab Data [facility] Lab Attestation statement: I reviewed the patient's lab results. 06/06/22 06:55 06/06/22 06:55 Labs: Lab Results 06/06/22 06/06/22 06/06/22 Range/Units 06:55 06:55 06:55 WBC 9.2 (4.8-10.8) X10*3/uL RBC 5.06 (4.20-5.50) X10*6/uL Hgb 14.9 (12.0-16.0) g/dl Hct 46.2 (37.0-47.0) % MCV 91.3 (80.0-98.0) fL MCH 29.4 (27.0-33.0) pg MCHC 32.3 (31.0-35.0) g/dl RDW 12.8 (11.0-16.0) % Plt Count 373 (160-400) X10*3/uL MPV 11.2 (9.4-12.3) fL Immature Gran % (Auto) 0.3 (0.0-0.4) % Neut % (Auto) 61.4 (45-73) % Lymph % (Auto) 26.0 (20-40) % Hunt % (Auto) 8.3 (2-11) % Eos % (Auto) 2.8 (0-4) % Baso % (Auto) 1.2 (0-2) % Lymph # (Auto) 2.4 (1.2-4.9) X10*3/uL Hunt # (Auto) 0.8 (0.1-1.2) X10*3/uL Eos # (Auto) 0.3 (0.0-0.4) X10*3/uL Baso # (Auto) 0.1 (0.0-0.2) X10*3/uL Abs Immat Gran (auto) 0.03 (0.00-0.03) X10*3/uL Absolute Neuts (auto) 5.6 (2.0-8.3) x10*3/uL Absolute Nucleated RBC 0.000 (0.0-0.012) X10*3/uL Nucleated RBC % (auto) 0.0 (0.0-0.2) /100WBC Sodium 140 (135-145) mmol/L Potassium 4.5 (3.3-5.1) mmol/L Chloride 108 (96-108) mmol/L Carbon Dioxide 23 (22-29) mmol/L Anion Gap 14 (12-20) BUN 17 H (9-16) mg/dL Creatinine 0.84 (0.5-1.4) mg/dL Estim Creat Clear Calc 112.2 Estimated GFR > 60 Random Glucose 95 (60-115) mg/dL Calcium 9.1 D (8.4-10.2) mg/dL Total Bilirubin 0.2 (0.0-1.0) mg/dL Direct Bilirubin < 0.2 (0.0-0.5) mg/dL AST 19 (5-31) U/L ALT 23 (0-31) U/L Alkaline Phosphatase 118 H (39-117) U/L Total Protein 7.6 (6.5-8.0) g/dL Albumin 4.4 (3.5-5.0) g/dL Lipase 17 (8-78) U/L Urine Color Urine Appearance Urine pH (5.0-9.0) Ur Specific Irving (1.005-1.025) Urine Protein (Neg-Trace) mg/dL Urine Glucose (UA) (Negative) mg/dL Urine Ketones (Negative) mg/dL Urine Blood (Negative) Urine Nitrite (Negative) Ur Leukocyte Esterase (Negative) Urine Test (NEGATIVE) Influenza Type A (PCR) NEGATIVE (Negative) Influenza Type B (PCR) NEGATIVE (Negative) RSV RNA Qual (PCR) NEGATIVE (Negative) SARS-CoV-2 RNA (RT-PCR) NEGATIVE (Negative) 06/06/22 06/06/22 Range/Units 06:55 06:55 WBC (4.8-10.8) X10*3/uL RBC (4.20-5.50) X10*6/uL Hgb (12.0-16.0) g/dl Hct (37.0-47.0) % MCV (80.0-98.0) fL MCH (27.0-33.0) pg MCHC (31.0-35.0) g/dl RDW (11.0-16.0) % Plt Count (160-400) X10*3/uL MPV (9.4-12.3) fL Immature Gran % (Auto) (0.0-0.4) % Neut % (Auto) (45-73) % Lymph % (Auto) (20-40) % Hunt % (Auto) (2-11) % Eos % (Auto) (0-4) % Baso % (Auto) (0-2) % Lymph # (Auto) (1.2-4.9) X10*3/uL Hunt # (Auto) (0.1-1.2) X10*3/uL Eos # (Auto) (0.0-0.4) X10*3/uL Baso # (Auto) (0.0-0.2) X10*3/uL Abs Immat Gran (auto) (0.00-0.03) X10*3/uL Absolute Neuts (auto) (2.0-8.3) x10*3/uL Absolute Nucleated RBC (0.0-0.012) X10*3/uL Nucleated RBC % (auto) (0.0-0.2) /100WBC Sodium (135-145) mmol/L Potassium (3.3-5.1) mmol/L Chloride (96-108) mmol/L Carbon Dioxide (22-29) mmol/L Anion Gap (12-20) BUN (9-16) mg/dL Creatinine (0.5-1.4) mg/dL Estim Creat Clear Calc Estimated GFR Random Glucose (60-115) mg/dL Calcium (8.4-10.2) mg/dL Total Bilirubin (0.0-1.0) mg/dL Direct Bilirubin (0.0-0.5) mg/dL AST (5-31) U/L ALT (0-31) U/L Alkaline Phosphatase (39-117) U/L Total Protein (6.5-8.0) g/dL Albumin (3.5-5.0) g/dL Lipase (8-78) U/L Urine Color Yellow Urine Appearance Clear Urine pH 6.5 (5.0-9.0) Ur Specific Irving 1.025 (1.005-1.025) Urine Protein Negative (Neg-Trace) mg/dL Urine Glucose (UA) Negative (Negative) mg/dL Urine Ketones Negative (Negative) mg/dL Urine Blood Negative (Negative) Urine Nitrite Negative (Negative) Ur Leukocyte Esterase Negative (Negative) Urine Test NEGATIVE (NEGATIVE) Influenza Type A (PCR) (Negative) Influenza Type B (PCR) (Negative) RSV RNA Qual (PCR) (Negative) SARS-CoV-2 RNA (RT-PCR) (Negative) Independent Interpretation I performed an independent interpretation of an: CT Scan Interpretation: I independently reviewed CT scan and agree with the radiologist's report Radiology Impression Discussion of test interpretation with radiology: I have reviewed the radiologist's reading. Radiologist Impression: FINDINGS: LUNG BASES: Normal. No pulmonary consolidation or pleural effusion.? LIVER: The liver has normal size, shape, and attenuation.? No evidence of liver mass. GALLBLADDER AND BILIARY TREE: Gallbladder is without radiopaque stones, wall thickening or pericholecystic fluid.? No dilated bile ducts. PANCREAS: Normal. No edema, pancreatic ductal dilatation or mass.? SPLEEN: Normal.? ADRENAL GLANDS: Normal.? KIDNEYS AND URETERS: Kidneys are normal in size and enhance symmetrically. No hydronephrosis or perinephric edema. Note that the excretion of iodinated contrast into the nondilated collecting systems could interfere with detection of any small renal stones. No evidence of any large renal calculi. The ureters are normal. BLADDER:? Normal. No calculi or wall thickening. BOWEL AND PERITONEUM: Stomach is unremarkable. No dilated loops of bowel. The appendix is normal. There is lack of distention of loops of small and large bowel. No overt bowel wall thickening or mesenteric fat stranding. No free fluid or pneumoperitoneum. ABDOMINAL WALL: Unremarkable.? VASCULATURE: Normal. LYMPH NODES: No pathologic sized lymph nodes in the abdomen or pelvis. No inguinal lymphadenopathy. PELVIC VISCERA: The anteflexed, anteverted uterus is normal in size. No evidence of uterine leiomyoma. 0.5 cm nabothian cyst of the cervix. The ovaries are unremarkable. No pelvic free fluid. Multiple phleboliths are present within the pelvis. MUSCULOSKELETAL: Unremarkable.? CT/CT abdomen pelvis w IV con IMPRESSION: No specific source of abdominal pain is identified. No evidence of acute inflammation or obstruction along the gastrointestinal tract. No abdominal free fluid, mass or lymphadenopathy. ? Medications Administered Discontinued Medications Generic Name Dose Route Start Last Admin Trade Name Freq PRN Reason Stop Dose Admin Sodium Chloride 1,000 mls @ 999 mls/hr 06/06/22 08:20 06/06/22 09:24 Ns IV 06/06/22 09:20 Infused .Q1H1M STA Infusion Iohexol 85 ml 06/06/22 08:50 06/06/22 08:51 Iohexol 350 Mg/Ml 100 Ml Infus..Btl IV 06/06/22 08:51 85 ml ONCE ONE Administration Ketorolac Tromethamine 30 mg 06/06/22 08:20 06/06/22 08:32 Ketorolac Tromethamine 30 Mg/Ml Vial IVPUSH 06/06/22 08:21 30 mg ONCE ONE Administration Ondansetron HCl 4 mg 06/06/22 08:20 06/06/22 08:32 Ondansetron Hcl 4 Mg/2 Ml Vial IVPUSH 06/06/22 08:21 4 mg ONCE ONE Administration Discharge Plan Discharge Clinical Impression: Gastroenteritis Patient Disposition: Home, Self-Care Instructions: Gastroenteritis (ED) Additional Instructions: Viral testing for flu, COVID, RSV are negative Your lab work, urine testing and CT scan are all reassuring. You likely have a virus. Start with clear liquids and advance your diet as tolerated Return for intractable vomiting, fever which is not respond to Motrin or Tylenol, severe abdominal pain Prescriptions: New dicyclomine 10 mg capsule 10 mg PO TID PRN (Reason: abdominal pain) Qty: 14 0RF ondansetron 4 mg tablet,disintegrating 4 mg PO Q6H PRN (Reason: nausea and vomiting) Qty: 14 0RF No Action bisacodyl [Dulcolax (bisacodyl)] 5 mg tablet,delayed release (DR/EC) 10 mg PO ONCE 1 Days Qty: 2 0RF Rx Instructions: take orally as directed prior to colonoscopy polyethylene glycol 3350 [Miralax] 17 gram/dose powder 238 g PO ONCE 1 Days Qty: 238 0RF Rx Instructions: take orally as directed prior to colonoscopy ondansetron 4 mg tablet,disintegrating 4 mg PO Q8H PRN (Reason: nausea and vomiting) Qty: 30 1RF nortriptyline 10 mg/5 mL solution 10 mg PO BEDTIME Qty: 473 2RF esomeprazole magnesium [Nexium] 40 mg capsule,delayed release(DR/EC) 40 mg PO DAILY Qty: 30 3RF nortriptyline 10 mg capsule 10 mg PO BEDTIME Qty: 60 1RF famotidine [Pepcid] 20 mg tablet 20 mg PO DAILY PRN (Reason: abdominal discomfort) Qty: 30 2RF multivitamin Tablet 1 tab PO DAILY Cryselle (28) 0.3-30 mg-mcg Tablet 1 tab PO DAILY loratadine 10 mg Tablet 10 mg PO DAILY hydroxyzine pamoate 25 mg Capsule 25 mg PO BEDTIME Vitamin B-12 25 mcg Tablet 50 mcg PO DAILY phenylephrine HCl [Sudafed PE] 10 mg Tablet 10 mg PO DAILY prednisone 20 mg tablet 40 mg PO DAILY 5 Days Qty: 10 0RF diazepam [Valium] 5 mg tablet 5 mg PO TID PRN (Reason: muscle spasm) Qty: 12 0RF Rx Instructions: partial fill is okay lidocaine 5 % adhesive patch,medicated 1 patch topical DAILY Qty: 30 0RF Rx Instructions: leave on most painful area for up to 12 hrs Referrals: Physician,Jeremy J [Primary Care Provider] - Stand Alone Forms: Work/School Release Interventions: ED Discharge Assessment Last Done: 06/06/22 10:43 Discharge Date/Time: 06/06/22 10:47
[2022-06-06 08:08] VITALS: BP 125/77; PULSE 68; RESP 14; TEMP 36.6; O2SAT 96
[2022-06-06] MEDS: 0.9 % Sodium Chloride 1,000 ML 999 ML IV (08:31)
[2022-06-06] MEDS: ondansetron HCL 4 MG/2 ML VIAL IVPUSH (08:32)
[2022-06-06] MEDS: Ketorolac Tromethamine 30 MG/ML VIAL IVPUSH (08:32)
[2022-06-06] MEDS: iohexoL 350 MG/ML 100 ML INFUS..BTL 85 ML IV (08:51)
[2022-06-06 08:56] LABS: Alanine Aminotransferase 23 U/L (0-31); Albumin Level 4.4 g/dL (3.5-5.0); Alkaline Phosphatase 118 U/L (39-117); Aspartate Amino Transferase 19 U/L (5-31); Bilirubin Direct < 0.2 mg/dL (0.0-0.5); Bilirubin Total 0.2 mg/dL (0.0-1.0); Lipase 17 U/L (8-78); Total Protein 7.6 g/dL (6.5-8.0)
[2022-06-06 10:34] VITALS: BP 129/79; PULSE 69; RESP 16; O2SAT 98
== END 2022-06-06 10:47 | disposition home or self-care (01) ==
PROVIDERS: Nurse Practitioner Family; Emergency Provider Emergency Medicine Emergency Medical Services
DX: K52.9 Noninfective gastroenteritis and colitis, unspecified (principal); R10.32 Left lower quadrant pain; R11.10 Vomiting, unspecified; Z20.822 Contact with and (suspected) exposure to COVID-19; Z20.828 Contact with and (suspected) exposure to other viral communicable diseases; Z79.899 Other long term (current) drug therapy
CPT/HCPCS: 0241U; 36415; 74177; 80048; 80076; 81003; 81025; 83690; 85025; 96361; 96374; 96375; 99284; J1885; J2405; Q9967

== ENCOUNTER 2022-09-03 07:16 | Emergency (ER) | payer OTHER, SELFPAY ==
[2022-09-03 07:39] VITALS: BP 119/72; PULSE 72; RESP 18; TEMP 36.9; O2SAT 98; BMI 36.7
[2022-09-03] MEDS: 0.9 % Sodium Chloride 1,000 ML 999 ML IV (08:21)
[2022-09-03 08:30] LABS: MANUAL DIFF FLAG NO
[2022-09-03 08:32] LABS: Basophils Percent Auto 0.5 % (0-2); Eosinophils Absolute Auto 0.2 X10*3/uL (0.0-0.4); Eosinophils Percent Auto 3.2 % (0-4); Imm Gran Abs Auto 0.02 X10*3/uL (0.00-0.03); Imm Gran Pct Auto 0.3 % (0.0-0.4); Lymphocytes Absolute Auto 1.5 X10*3/uL (1.2-4.9); Lymphocytes Percent Auto 23.6 % (20-40); Mean Corpuscular HGB Conc 32.6 g/dl (31.0-35.0); Mean Corpuscular Hemoglobin 29.4 pg (27.0-33.0); Mean Corpuscular Volume 90.2 fL (80.0-98.0); Mean Platelet Volume 11.4 fL (9.4-12.3); Monocytes Absolute Auto 0.7 X10*3/uL (0.1-1.2); Monocytes Percent Auto 11.3 % (2-11); Neutrophils Absolute Auto 3.9 x10*3/uL (2.0-8.3); Neutrophils Percent Auto 61.1 % (45-73); Platelet Count 318 X10*3/uL (160-400); Red Cell Distribution Width 13.2 % (11.0-16.0); White Blood Count 6.3 X10*3/uL (4.8-10.8)
[2022-09-03 08:33] LABS: Appearance Urine Clear; Color Urine Yellow; Glucose Urine UA Negative (Negative); Leukocyte Esterase Urine Negative (Negative); Nitrite Urine Negative (Negative); Specific Gravity - Urine 1.015 (1.005-1.025); UMIC TRIGGER UACC YES; Urine Blood Small (1+) (Negative); Urine Ketones Negative (Negative); Urine Protein Negative (Neg-Trace)
[2022-09-03 08:36] LABS: UPreg QC Valid YES; Urine Pregnancy NEGATIVE (NEGATIVE)
[2022-09-03 08:38] LABS: Bacteria Urine None Seen (None Seen); Squamous Epithelial Cell Urine 0-2 /HPF (0-2); WBC Urine 0-5 /HPF (0-5)
[2022-09-03 08:43] LABS: Lactic Acid 0.7 mmol/L (0.5-2.0)
[2022-09-03 08:48] LABS: Alanine Aminotransferase 70 U/L (0-31); Albumin Level 4.5 g/dL (3.5-5.0); Alkaline Phosphatase 82 U/L (39-117); Anion Gap 14 (12-20); Aspartate Amino Transferase 33 U/L (5-31); Bilirubin Direct 0.1 mg/dL (0.0-0.5); Bilirubin Total 0.3 mg/dL (0.0-1.0); Blood Urea Nitrogen 9 mg/dL (9-16); Calcium 9.5 mg/dL (8.4-10.2); Carbon Dioxide 26 mmol/L (22-29); Chloride 105 mmol/L (96-108); Estimated Glomerular Filt Rate > 60; Glucose Random 89 mg/dL (60-115); Lipase 18 U/L (8-78); Potassium 4.2 mmol/L (3.3-5.1); Sodium 141 mmol/L (135-145); Total Protein 7.9 g/dL (6.5-8.0)
[2022-09-03] MEDS: ondansetron HCL 4 MG/2 ML VIAL IVPUSH (09:08)
[2022-09-03 10:00] VITALS: BP 104/49; PULSE 65; RESP 16; TEMP 36.6; O2SAT 98
--- NOTE | 2022-09-03 11:03 | ED.NAVMDI ---
HPI - Nausea/Vomiting/Diarrhea General Chief complaint: Nausea/Vomiting/Diarrhea Stated complaint: nausea, Time Seen by Provider: 09/03/22 07:43 Source: patient and RN notes reviewed Mode of arrival: ambulatory Limitations: no limitations History of Present Illness HPI Narrative: This is a 32-year-old female, with no known past medical history, presents the emergency department with complaints of abdominal, nausea, vomiting, pain since Sunday. Patient reports that her abdominal pain is gurgling feeling as though she needs to eat but is unable to keep food and liquids down. No bloody vomitus. She has been seen by Dr. Hinson in the past, and has been told that she had H pylori treated back in 2019. Denies any fevers, chills, urinary symptoms. 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 Dif. No other complaints or concerns at this time. MD elicited complaint: nausea, vomiting, diarrhea and abdominal pain Onset (ago): day(s) Description of diarrhea: loose Associated nausea: Yes Associated abdominal pain: Yes Location of pain: diffuse and LLQ Pain consistency: constant Quality: cramping and aching Exacerbating factors: none Relieving factors: none Associated symptoms: nausea/vomiting Related Data Home Medications Medication Instructions Recorded Confirmed cyanocobalamin (vitamin B-12) 25 50 mcg PO DAILY 10/06/20 10/06/20 mcg tablet hydroxyzine pamoate 25 mg capsule 25 mg PO BEDTIME 10/06/20 10/06/20 loratadine 10 mg tablet 10 mg PO DAILY 10/06/20 10/06/20 multivitamin 1 tab PO DAILY 10/06/20 10/06/20 norgestrel 0.3 mg-ethinyl 1 tab PO DAILY 10/06/20 10/06/20 estradiol 30 mcg tablet (Edu (28)) phenylephrine HCl 10 mg tablet 10 mg PO DAILY 10/06/20 10/06/20 (Sudafed PE) Previous Rx's Medication Instructions Recorded bisacodyl 5 mg tablet,delayed 10 mg PO ONCE 1 day #2 tabs 10/12/20 release (Dulcolax (bisacodyl)) polyethylene glycol 3350 17 238 g PO ONCE 1 day #238 grams 10/12/20 gram/dose oral powder (Miralax) ondansetron 4 mg disintegrating 4 mg PO Q8H PRN nausea and 02/16/21 tablet vomiting #30 tabs nortriptyline 10 mg/5 mL oral 10 mg (5 mL) PO BEDTIME #473 mL 03/02/21 solution esomeprazole magnesium 40 mg 40 mg PO DAILY #30 caps 06/20/21 capsule,delayed release (Nexium) diazepam 5 mg tablet (Valium) 5 mg PO TID PRN muscle spasm #12 01/18/22 tabs lidocaine 5 % topical patch 1 patch topical DAILY #30 ea 01/18/22 prednisone 20 mg tablet 40 mg PO DAILY 5 days #10 tabs 01/18/22 nortriptyline 10 mg capsule 10 mg PO BEDTIME #60 caps 02/13/22 dicyclomine 10 mg capsule 10 mg PO TID PRN abdominal pain 06/06/22 #14 caps ondansetron 4 mg disintegrating 4 mg PO Q6H PRN nausea and 06/06/22 tablet vomiting #14 tabs famotidine 20 mg tablet (Pepcid) 20 mg PO DAILY PRN abdominal 07/27/22 discomfort #30 tabs ondansetron 4 mg disintegrating 4 mg PO Q6-8H PRN nausea and 09/03/22 tablet vomiting #20 tabs Allergies Allergy/AdvReac Type Severity Reaction Status Date / Time Seasonal Allergies Allergy Mild runny Verified 11/22/20 15:40 nose, sinus infection, congestion Review of Systems Review of Systems: Constitutional: No Weight loss, No Fever, No Chills ENT/Mouth: No Ear Pain, No Nasal Congestion, No Sinus Pain, No Hoarseness, No sore throat, No Rhinorrhea, No Swallowing Difficulty Cardiovascular: No Chest Pain, No SOB Respiratory: No Cough, No Sputum, No Wheezing Gastrointestinal: + Nausea, + Vomiting, No Diarrhea, No Constipation, + Abdominal pain Genitourinary: No Dysuria, No Urinary Frequency, No Hematuria, No Urinary Incontinence/retention, No Urgency, No Flank Pain Musculoskeletal: No joint pain, No Myalgias, No Joint Swelling Skin: No Skin Lesions, No rash Neuro: No Weakness, No Numbness, No Paresthesias Yes all other systems are reviewed and are negative Constitutional: Constitutional: Reports as per HPI Gastrointestinal: Gastrointestinal: Reports nausea PMFSH Past Medical History Medical History Anemia Arthritis Concussion COVID-19 vaccine administered Degenerative lumbar disc Depression GERD (gastroesophageal reflux disease) Heavy menstrual bleeding High cholesterol Hx of renal calculi Kidney stones Mood swings Nasal inflammation Obesity Panic attacks Rheumatoid arthritis Severe anxiety Tobacco use Vitamin D deficiency Surgical History H/O colonoscopy H/O esophagogastroduodenoscopy H/O tooth extraction Family History Family History Mother Diabetes COPD (chronic obstructive pulmonary disease) Vitamin D deficiency Active asthma Sleep apnea Father Cancer Vitamin D deficiency Depression Bipolar 1 disorder Anxiety PTSD (post-traumatic stress disorder) HTN (hypertension) Brother Active asthma Hiatal hernia Depression Maternal Grandmother Blind COPD (chronic obstructive pulmonary disease) Breast mass Brain tumor Lung mass Atrial fib/flutter, transient Depression Anxiety Paternal Grandmother History of quadruple bypass Dementia Skin carcinoma Paternal Grandfather Cancer Skin carcinoma Maternal Grandfather Skin melanoma Social History Social History Patient Tobacco Use Status: Former Tobacco user Quit Date: 2019 Tobacco use type: Cigarette Years Smoked: 7 Advance Directives: No Advance Directives Information Provided: No Physical Exam Vital Signs: Vital Signs: Last Vital Signs Temp 97.8 F 09/03/22 10:00 Pulse 65 09/03/22 10:00 Resp 16 09/03/22 10:00 BP 104/49 L 09/03/22 10:00 Pulse Ox 98 09/03/22 10:00 O2 Del Method Room Air 09/03/22 10:00 BMI result Body Mass Index 36.7 Const: General: cooperative, comfortable and no acute distress Orientation/consciousness: patient oriented x3 Limitations: no limitations HEENT: Head: Yes normal to inspection, Yes normocephalic and Yes atraumatic Ears: hearing grossly normal bilaterally General nose exam: Normal external nose present Face and sinus: Yes normal facial exam Mouth: Normal oral and palatal mucosa present, oropharynx normal and moist mucous membranes Throat: Yes posterior oropharynx normal Eyes: General: appearance normal, both eyes and all related structures Eyelids: Yes eyelids normal Conjunctivae: conjunctivae normal Sclerae: sclerae normal Pupils: Equal, round and reactive pupils present EOM: EOMs intact bilaterally Neck: Neck: Yes normal visual inspection, Yes full ROM and Yes no lymphadenopathy Lymphatic: no lymphadenopathy noted Chest: Chest palpation & inspection: normal inspection of the chest Resp: Effort & Inspection: normal respiratory effort and able to speak in complete sentences Auscultation: clear to auscultation bilaterally, no crackles, no rales, no rhonchi and no wheezes Cardio: Rate: regular rate Rhythm: regular rhythm Heart sounds: S1 normal heart sound present and S2 normal heart sound present GI: Other: Abdomen is soft, mild tenderness to the left lower quadrant, no rebound or guarding. No suprapubic tenderness, no Rovsing sign, no tenderness in McBurney's point, negative Juan sign. No epigastric tenderness. Normoactive bowel sounds. Inspection: Yes normal to inspection Skin: General skin exam: no rashes or lesions noted Trauma: no lacerations or abrasions Wounds: no wounds Neuro: General: patient oriented x3 and moves all extremities Cranial nerves: Yes Equal, round and reactive pupils present Extrem: General: Yes normal to inspection Right upper extremity: normal to inspection Left upper extremity: normal to inspection Right lower extremity: normal to inspection Left lower extremity: normal to inspection Course Reevaluation(s) Reevaluation #1: Patient feeling better after IV fluids and Zofran. Patient able to tolerate p.o. without difficulty. I suggested trying Bentyl, Maalox, Benadryl, and Reglan, however patient would like to be discharged at this time. Patient still experiencing slight abdominal pain but this has improved. Patient has no leukocytosis, mildly elevated liver enzymes otherwise other blood work and urine has been unremarkable. Advised to follow-up with her primary care physician and to return with any new or worsening symptoms. Patient discharged on Zofran given precautions on when to return. Patient stable for discharge. Medications Administered Discontinued Medications Generic Name Dose Route Start Last Admin Trade Name Freq PRN Reason Stop Dose Admin Sodium Chloride 1,000 mls @ 999 mls/hr 09/03/22 08:13 09/03/22 08:21 Ns IV 09/03/22 09:13 999 mls/hr .Q1H1M ONE Administration Ondansetron HCl 4 mg 09/03/22 09:03 09/03/22 09:08 Ondansetron Hcl 4 Mg/2 Ml Vial IVPUSH 09/03/22 09:04 4 mg ONCE ONE Administration Medical Decision Making Medical Decision Making [facility] Narrative: 32-year-old female presenting to the emergency department for evaluation of abdominal pain, nausea, vomiting, and diarrhea since Sunday. 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 Reports that she had some laurent colored stool this morning which prompted her to the emergency department. No known recent exposure to C diff. patient has been seen here in the past for similar symptoms. Last had a CT abdomen and pelvis on 06/06/2022 with similar symptoms. She has had no fevers or chills. Plan: Labs, UA, Zofran, IV fluids Differential Diagnosis Differential Diagnoses: The differential diagnosis associated with the presentation includes gastritis, gastroenteritis, c. dif. electrolyte abnormality. Admission/Observation Consideration of admission/observation: Escalation of care including admission/observation considered Lab Data MDM Lab Attestation statement: I reviewed the patient's lab results. 09/03/22 08:21 09/03/22 08:20 Labs: Lab Results 09/03/22 09/03/22 09/03/22 Range/Units 08:19 08:20 08:21 WBC 6.3 (4.8-10.8) X10*3/uL RBC 5.10 (4.20-5.50) X10*6/uL Hgb 15.0 (12.0-16.0) g/dl Hct 46.0 (37.0-47.0) % MCV 90.2 (80.0-98.0) fL MCH 29.4 (27.0-33.0) pg MCHC 32.6 (31.0-35.0) g/dl RDW 13.2 (11.0-16.0) % Plt Count 318 (160-400) X10*3/uL MPV 11.4 (9.4-12.3) fL Immature Gran % (Auto) 0.3 (0.0-0.4) % Neut % (Auto) 61.1 (45-73) % Lymph % (Auto) 23.6 (20-40) % [place] % (Auto) 11.3 H (2-11) % Eos % (Auto) 3.2 (0-4) % Baso % (Auto) 0.5 (0-2) % Lymph # (Auto) 1.5 (1.2-4.9) X10*3/uL [place] # (Auto) 0.7 (0.1-1.2) X10*3/uL Eos # (Auto) 0.2 (0.0-0.4) X10*3/uL Baso # (Auto) 0.0 (0.0-0.2) X10*3/uL Abs Immat Gran (auto) 0.02 (0.00-0.03) X10*3/uL Absolute Neuts (auto) 3.9 (2.0-8.3) x10*3/uL Absolute Nucleated RBC 0.000 (0.0-0.012) X10*3/uL Nucleated RBC % (auto) 0.0 (0.0-0.2) /100WBC Sodium 141 (135-145) mmol/L Potassium 4.2 (3.3-5.1) mmol/L Chloride 105 (96-108) mmol/L Carbon Dioxide 26 (22-29) mmol/L Anion Gap 14 (12-20) BUN 9 (9-16) mg/dL Creatinine 0.83 (0.5-1.4) mg/dL Estim Creat Clear Calc 111.0 Estimated GFR > 60 Random Glucose 89 (60-115) mg/dL Lactic Acid (0.5-2.0) mmol/L Calcium 9.5 (8.4-10.2) mg/dL Magnesium 2.0 (1.6-2.6) mg/dL Total Bilirubin 0.3 (0.0-1.0) mg/dL Direct Bilirubin 0.1 (0.0-0.5) mg/dL AST 33 H (5-31) U/L ALT 70 H (0-31) U/L Alkaline Phosphatase 82 (39-117) U/L Total Protein 7.9 (6.5-8.0) g/dL Albumin 4.5 (3.5-5.0) g/dL Lipase 18 (8-78) U/L Urine Color Urine Appearance Urine pH (5.0-9.0) Ur Specific [place] (1.005-1.025) Urine Protein (Neg-Trace) mg/dL Urine Glucose (UA) (Negative) mg/dL Urine Ketones (Negative) mg/dL Urine Blood (Negative) Urine Nitrite (Negative) Ur Leukocyte Esterase (Negative) Urine RBC (0-2) /HPF Urine WBC (0-5) /HPF Ur Squamous Epith Cells (0-2) /HPF Urine Bacteria (None Seen) Hyaline Casts (0-2) /LPF Urine Test NEGATIVE (NEGATIVE) C. difficile Tox B Gene (Negative) 09/03/22 09/03/22 09/03/22 Range/Units 08:21 08:21 09:48 WBC (4.8-10.8) X10*3/uL RBC (4.20-5.50) X10*6/uL Hgb (12.0-16.0) g/dl Hct (37.0-47.0) % MCV (80.0-98.0) fL MCH (27.0-33.0) pg MCHC (31.0-35.0) g/dl RDW (11.0-16.0) % Plt Count (160-400) X10*3/uL MPV (9.4-12.3) fL Immature Gran % (Auto) (0.0-0.4) % Neut % (Auto) (45-73) % Lymph % (Auto) (20-40) % [place] % (Auto) (2-11) % Eos % (Auto) (0-4) % Baso % (Auto) (0-2) % Lymph # (Auto) (1.2-4.9) X10*3/uL [place] # (Auto) (0.1-1.2) X10*3/uL Eos # (Auto) (0.0-0.4) X10*3/uL Baso # (Auto) (0.0-0.2) X10*3/uL Abs Immat Gran (auto) (0.00-0.03) X10*3/uL Absolute Neuts (auto) (2.0-8.3) x10*3/uL Absolute Nucleated RBC (0.0-0.012) X10*3/uL Nucleated RBC % (auto) (0.0-0.2) /100WBC Sodium (135-145) mmol/L Potassium (3.3-5.1) mmol/L Chloride (96-108) mmol/L Carbon Dioxide (22-29) mmol/L Anion Gap (12-20) BUN (9-16) mg/dL Creatinine (0.5-1.4) mg/dL Estim Creat Clear Calc Estimated GFR Random Glucose (60-115) mg/dL Lactic Acid 0.7 (0.5-2.0) mmol/L Calcium (8.4-10.2) mg/dL Magnesium (1.6-2.6) mg/dL Total Bilirubin (0.0-1.0) mg/dL Direct Bilirubin (0.0-0.5) mg/dL AST (5-31) U/L ALT (0-31) U/L Alkaline Phosphatase (39-117) U/L Total Protein (6.5-8.0) g/dL Albumin (3.5-5.0) g/dL Lipase (8-78) U/L Urine Color Yellow Urine Appearance Clear Urine pH 6.0 (5.0-9.0) Ur Specific [place] 1.015 (1.005-1.025) Urine Protein Negative (Neg-Trace) mg/dL Urine Glucose (UA) Negative (Negative) mg/dL Urine Ketones Negative (Negative) mg/dL Urine Blood Small (1+) H (Negative) Urine Nitrite Negative (Negative) Ur Leukocyte Esterase Negative (Negative) Urine RBC 6-10 H (0-2) /HPF Urine WBC 0-5 (0-5) /HPF Ur Squamous Epith Cells 0-2 (0-2) /HPF Urine Bacteria None Seen (None Seen) Hyaline Casts 3-5 (0-2) /LPF Urine Test (NEGATIVE) C. difficile Tox B Gene NEGATIVE (Negative) External Record Review External record reviewed: Inpatient record, Office record, Outpatient record, Prior outpatient labs, Prior outpatient radiology, Primary care record and Outside ED record Discharge Plan Discharge Clinical Impression: Nausea & vomiting, Diarrhea Patient Disposition: Home, Self-Care Instructions: Acute Nausea and Vomiting (ED) Additional Instructions: Please stick to a bland diet (Bananas, Rice, Applesauce, toast, etc). Drink plenty of fluids get plenty of rest. Please follow-up with your GI specialist. Take prescribe Zofran as directed. Will call you with any abnormal lab results. If your unable to tolerate food or liquid by mouth please return for re-evaluation. If any new or worsening symptoms occur please return Prescriptions: New ondansetron 4 mg tablet,disintegrating 4 mg PO Q6-8H PRN (Reason: nausea and vomiting) Qty: 20 0RF No Action bisacodyl [Dulcolax (bisacodyl)] 5 mg tablet,delayed release (DR/EC) 10 mg PO ONCE 1 Days Qty: 2 0RF Rx Instructions: take orally as directed prior to colonoscopy polyethylene glycol 3350 [Miralax] 17 gram/dose powder 238 g PO ONCE 1 Days Qty: 238 0RF Rx Instructions: take orally as directed prior to colonoscopy ondansetron 4 mg tablet,disintegrating 4 mg PO Q8H PRN (Reason: nausea and vomiting) Qty: 30 1RF nortriptyline 10 mg/5 mL solution 10 mg PO BEDTIME Qty: 473 2RF esomeprazole magnesium [Nexium] 40 mg capsule,delayed release(DR/EC) 40 mg PO DAILY Qty: 30 3RF nortriptyline 10 mg capsule 10 mg PO BEDTIME Qty: 60 1RF famotidine [Pepcid] 20 mg tablet 20 mg PO DAILY PRN (Reason: abdominal discomfort) Qty: 30 2RF multivitamin Tablet 1 tab PO DAILY [place] (28) 0.3-30 mg-mcg Tablet 1 tab PO DAILY loratadine 10 mg Tablet 10 mg PO DAILY hydroxyzine pamoate 25 mg Capsule 25 mg PO BEDTIME Vitamin B-12 25 mcg Tablet 50 mcg PO DAILY phenylephrine HCl [Sudafed PE] 10 mg Tablet 10 mg PO DAILY dicyclomine 10 mg capsule 10 mg PO TID PRN (Reason: abdominal pain) Qty: 14 0RF ondansetron 4 mg tablet,disintegrating 4 mg PO Q6H PRN (Reason: nausea and vomiting) Qty: 14 0RF prednisone 20 mg tablet 40 mg PO DAILY 5 Days Qty: 10 0RF diazepam [Valium] 5 mg tablet 5 mg PO TID PRN (Reason: muscle spasm) Qty: 12 0RF Rx Instructions: partial fill is okay lidocaine 5 % adhesive patch,medicated 1 patch topical DAILY Qty: 30 0RF Rx Instructions: leave on most painful area for up to 12 hrs Stand Alone Forms: Work/School Release Interventions: ED Discharge Assessment Last Done: 09/03/22 11:20 Discharge Date/Time: 09/03/22 11:20
[2022-09-03 11:15] LABS: CDiff Gene PCR NEGATIVE (Negative)
== END 2022-09-03 11:20 | disposition home or self-care (01) ==
PROVIDERS: Physician Assistant Medical; Emergency Provider Internal Medicine; PCP Family Medicine
DX: R11.2 Nausea with vomiting, unspecified (principal); R19.7 Diarrhea, unspecified; R10.32 Left lower quadrant pain; Z79.899 Other long term (current) drug therapy; Z87.891 Personal history of nicotine dependence
CPT/HCPCS: 36415; 80048; 80076; 81001; 81025; 83605; 83690; 83735; 85025; 87493; 96361; 96374; 99283; 99284; J2405

== ENCOUNTER → 2022-09-08 11:33 | Outpatient (BNVA) | payer OTHER, SELFPAY | PROVIDERS: PCP Family Medicine; Visit Provider Internal Medicine Gastroenterology ==

== ENCOUNTER 2022-11-28 04:10 | Emergency (ER) | payer OTHER, SELFPAY ==
--- NOTE | ~2022-11-28 | XR_ITS ---
EXAMINATION: XR CHEST CLINICAL INFORMATION: Respiratory congestion. COMPARISON: None available. TECHNIQUE: Frontal view of the chest was obtained. FINDINGS: The cardiomediastinal silhouette is normal. There is no focal lung consolidation or pleural effusion. The bony structures and soft tissues are unremarkable. XR/XR chest 1V IMPRESSION: No active cardiopulmonary disease.
[2022-11-28 04:16] VITALS: BP 130/56; PULSE 73; RESP 20; TEMP 37.4; O2SAT 96; BMI 35.7
--- NOTE | 2022-11-28 04:34 | ED_ITS ---
HPI - URI/Sore Throat General Chief Complaint: Upper Respiratory Symptoms Stated Complaint: Upper resp symptoms Time Seen by Provider: 11/28/22 04:33 Source: patient Mode of arrival: ambulatory Limitations: no limitations History of Present Illness HPI Narrative: 32-year-old female came in for evaluation of upper respiratory symptoms for the last 2 days. Feels sinus pressure, right ear pain, runny nose, coughing with no phlegm, wheezing, subjective fever, sore throat. 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 Related Data Home Medications Medication Instructions Recorded Confirmed loratadine 10 mg tablet 10 mg PO DAILY 10/06/20 10/06/20 multivitamin 1 tab PO DAILY 10/06/20 10/06/20 phenylephrine HCl 10 mg tablet 10 mg PO DAILY 10/06/20 10/06/20 (Sudafed PE) escitalopram oxalate 10 mg tablet 10 mg PO DAILY 09/08/22 Previous Rx's Medication Instructions Recorded bisacodyl 5 mg tablet,delayed 10 mg PO ONCE 1 day #2 tabs 09/08/22 release (Dulcolax (bisacodyl)) famotidine 20 mg tablet (Pepcid) 20 mg PO DAILY PRN abdominal 09/08/22 discomfort #30 tabs polyethylene glycol 3350 17 238 g PO ONCE 1 day #238 grams 09/08/22 gram/dose oral powder (Miralax) esomeprazole magnesium 40 mg 40 mg PO DAILY #90 caps 09/22/22 capsule,delayed release (Nexium) ondansetron 4 mg disintegrating 4 mg PO Q6-8H PRN nausea and 11/15/22 tablet vomiting #20 tabs albuterol sulfate 90 mcg/actuation 1 inh inhalation Q4-6H PRN 11/28/22 breath activated powder inhaler shortness of breath or wheezing #1 ea azithromycin 250 mg tablet See Rx Instructions PO .COMPLEX #6 11/28/22 (Zithromax Z-[place]) tabs ondansetron 4 mg disintegrating 4 mg PO Q8-12H PRN nausea and 11/28/22 tablet vomiting #10 tabs prednisone 20 mg tablet 20 mg PO BID #10 tabs 11/28/22 Allergies Allergy/AdvReac Type Severity Reaction Status Date / Time Seasonal Allergies Allergy Mild runny Verified 09/08/22 11:36 nose, sinus infection, congestion Review of Systems Review of Systems: All other systems are reviewed and are negative Constitutional: Reports as per HPI and Reports no additional constitutional complaints Eyes: Reports as per HPI and Reports no additional eye complaints Reports system reviewed and no additional complaints, except as documented Cardiovascular: Reports as per HPI and Reports no additional cardiovascular co mplaints Respiratory: Reports as per HPI and Reports no additional respiratory complaints Gastrointestinal: Reports as per HPI and Reports no additional gastrointestinal complaints Genitourinary: Reports no additional female genitourinary complaints Musculoskeletal: Reports no additional musculoskeletal complaints Skin/Breast: Reports system reviewed and no additional complaints, except as docu Psychiatric: Reports no additional psychiatric complaints Endocrine: Reports no additional endocrine complaints Hematologic/Lymphatic: Reports no additional hematologic/lymphatic complaints Allergic/Immunologic: Reports no additional allergic/immunologic complaints Reports system reviewed and no additional complaints, except as documented and Reports Abnormal speech present [facility] Past Medical History Medical History Anemia Arthritis Concussion COVID-19 vaccine administered Degenerative lumbar disc Depression GERD (gastroesophageal reflux disease) Heavy menstrual bleeding High cholesterol Hx of renal calculi Kidney stones Mood swings Nasal inflammation Obesity Panic attacks Rheumatoid arthritis Severe anxiety Tobacco use Vitamin D deficiency Surgical History H/O colonoscopy H/O esophagogastroduodenoscopy H/O tooth extraction Family History Family History Mother Diabetes COPD (chronic obstructive pulmonary disease) Vitamin D deficiency Active asthma Sleep apnea Father Cancer Vitamin D deficiency Depression Bipolar 1 disorder Anxiety PTSD (post-traumatic stress disorder) HTN (hypertension) Brother Active asthma Hiatal hernia Depression Maternal Grandmother Blind COPD (chronic obstructive pulmonary disease) Breast mass Brain tumor Lung mass Atrial fib/flutter, transient Depression Anxiety Paternal Grandmother History of quadruple bypass Dementia Skin carcinoma Paternal Grandfather Cancer Skin carcinoma Maternal Grandfather Skin melanoma Social History Social History Patient Tobacco Use Status: Former Tobacco user Quit Date: 2019 Tobacco use type: Cigarette Years Smoked: 7 Advance Directives: No Advance Directives Information Provided: Yes Physical Exam Vital Signs: Vital Signs: Last Vital Signs Temp 97.8 F 11/28/22 05:25 Pulse 64 08/22/23 05:25 Resp 15 11/28/22 05:25 BP 107/46 L 11/28/22 05:25 Pulse Ox 97 11/28/22 05:25 O2 Del Method Room Air 11/28/22 05:25 BMI result Body Mass Index 35.7 Vital signs have been reviewed as appeared to be correct. Blood pressure normal. Heart rate normal. Respiration rate normal. Temperature normal. Oxygen saturation normal. Appearance: Alert. Oriented X3. No acute distress. Head: Normal external exam. Normocephalic. Atraumatic. No Olivas signs noted. No raccoon eyes noted Eyes: PERRLA. EOMI. Conjunctiva and sclera normal. Eyelids normal. ENT: Right TM erythema, for injury erythema. Uvula midline. Moist mucous membranes. No trismus noted. No drooling noted. No muffled voice noted. Bilateral maxillary sinus tenderness on percussion. Neck: Normal inspection. Neck supple. FROM. No adenopathy. Thyroid Normal. No meningeal signs. No neck mass noted. CVS: Normal heart rate and rhythm. Heart sound normal. No murmurs noted. Pulses normal throughout. Respiratory: No respiratory distress. Painless inspiration. Breath sounds normal. No wheezes/rales/rhonchi noted. Chest nontender. No accessory muscle usage noted or decreased air movement noted. Abdomen: Soft and nontender. Bowel sounds normal in all 4 quadrants. No distention noted. No organomegaly noted. No visible injury noted. Back: No CVA tenderness. Full range of motion noted. Skin: Skin warm and dry. Normal skin color. Normal skin turgor. No abisai hes/lesions/lacerations noted. Extremities: No lower extremity edema. Extremities exhibit normal range of motion. Extremities nontender. Neuro: Oriented X 3. Cranial nerve exam: II-XII are grossly intact No motor deficit. No sensory deficit. Reflexes normal. Course Course Course Narrative: Upper respiratory infection, bronchitis, right OM. Start the patient on Z-[place]/prednisone/albuterol. Medical Decision Making Differential Diagnosis Differential Diagnoses: The differential diagnosis associated with the presentation includes (A strep pharyngitis, viral upper respiratory infection, pneumonia, pneumothorax, otitis media, pharyngitis.) Admission/Observation Consideration of admission/observation: Escalation of care including admission/observation considered Lab Data MDM Lab Attestation statement: I reviewed the patient's lab results. Labs: Lab Results 11/28/22 11/28/22 Range/Units 04:33 05:03 Influenza Type A (PCR) NEGATIVE (Negative) Influenza Type B (PCR) NEGATIVE (Negative) RSV RNA Qual (PCR) NEGATIVE (Negative) SARS-CoV-2 RNA (RT-PCR) NEGATIVE (Negative) S. pyogenes GrpA JAMAL Negative (Negative) Independent Interpretation I performed an independent interpretation of an: Plain X-Ray (Chest: No acute intrathoracic pathology.) Radiology Impression Discussion of test interpretation with radiology: I have reviewed the radiologist's reading. (The cardiomediastinal silhouette is normal. There is no focal lung consolidation or pleural effusion. The bony structures and soft ti ssues are unremarkable.) Discharge Plan Discharge Clinical Impression: URI (upper respiratory infection), Otitis media, Bronchitis Patient Disposition: Home, Self-Care Instructions: Ear Infection (ED), Acute Bronchitis (ED) Prescriptions: New azithromycin [Zithromax Z-[place]] 250 mg tablet See Rx Instructions .ROUTE .COMPLEX Qty: 6 0RF Rx Instructions: For 250 mg dose pack: take 500 mg today (day 1), then 250 mg for 4 days (days 2-5) prednisone 20 mg tablet 20 mg PO BID Qty: 10 0RF albuterol sulfate 90 mcg/actuation aerosol powdr breath activated 1 inh inhalation Q4-6H PRN (Reason: shortness of breath or wheezing) Qty: 1 0RF ondansetron 4 mg tablet,disintegrating 4 mg PO Q8-12H PRN (Reason: nausea and vomiting) Qty: 10 0RF No Action esomeprazole magnesium [Nexium] 40 mg capsule,delayed release(DR/EC) 40 mg PO DAILY Qty: 90 3RF ondansetron 4 mg tablet,disintegrating 4 mg PO Q6-8H PRN (Reason: nausea and vomiting) Qty: 20 0RF multivitamin Tablet 1 tab PO DAILY loratadine 10 mg Tablet 10 mg PO DAILY phenylephrine HCl [Sudafed PE] 10 mg Tablet 10 mg PO DAILY bisacodyl [Dulcolax (bisacodyl)] 5 mg tablet,delayed release (DR/EC) 10 mg PO ONCE 1 Days Qty: 2 0RF Rx Instructions: take orally as directed prior to colonoscopy polyethylene glycol 3350 [Miralax] 17 gram/dose powder 238 g PO ONCE 1 Days Qty: 238 0RF Rx Instructions: take orally as directed prior to colonoscopy escitalopram oxalate 10 mg tablet 10 mg PO DAILY famotidine [Pepcid] 20 mg tablet 20 mg PO DAILY PRN (Reason: abdominal discomfort) Qty: 30 2RF
[2022-11-28 05:17] LABS: IDNOW Serial# 08D9AD1C; Strep A Nucleic Acid Negative (Negative)
[2022-11-28 05:25] VITALS: BP 107/46; PULSE 64; RESP 15; TEMP 36.6; O2SAT 97
[2022-11-28 05:33] LABS: Influenza A PCR NEGATIVE (Negative); Influenza B PCR NEGATIVE (Negative); Resp Syncy Virus RNA Qual PCR NEGATIVE (Negative); SARS COV2 PCR INHOUSE NEGATIVE (Negative)
== END 2022-11-28 06:27 | disposition home or self-care (01) ==
PROVIDERS: Emergency Provider Emergency Medicine
DX: J06.9 Acute upper respiratory infection, unspecified (principal); J40 Bronchitis, not specified as acute or chronic; H66.91 Otitis media, unspecified, right ear; Z20.822 Contact with and (suspected) exposure to COVID-19; Z20.828 Contact with and (suspected) exposure to other viral communicable diseases; E78.5 Hyperlipidemia, unspecified; E66.9 Obesity, unspecified; Z68.35 Body mass index [BMI] 35.0-35.9, adult; Z87.891 Personal history of nicotine dependence
CPT/HCPCS: 0241U; 71045; 87651; 99283

== ENCOUNTER 2022-12-05 06:17 | Day surgery (SDC) | payer OTHER, SELFPAY ==
[2022-11-30 14:15] VITALS: BMI 35.9
--- NOTE | 2022-12-04 10:44 | P.CONAN_ITS ---
Documented by User: Marysol Donohue NP 12/04/22 10:45 HPI - Anesthesia Eval Consult details Narrative: 32yo F for Colonoscopy PMFSH Active Problems Active Problems: All Active Problems (Updated 11/29/22 @ 00:01 by Background Dasrini) Abnormal LFTs (Acute) Snoring (Acute) Nausea & vomiting (Acute) Diarrhea (Acute) Past Medical History Medical History Anemia Arthritis Concussion COVID-19 vaccine administered Degenerative lumbar disc Depression GERD (gastroesophageal reflux disease) Heavy menstrual bleeding High cholesterol Hx of renal calculi Kidney stones Mood swings Nasal inflammation Obesity Panic attacks Rheumatoid arthritis Severe anxiety Tobacco use Vitamin D deficiency Family History Family History Mother Diabetes COPD (chronic obstructive pulmonary disease) Vitamin D deficiency Active asthma Sleep apnea Father Cancer Vitamin D deficiency Depression Bipolar 1 disorder Anxiety PTSD (post-traumatic stress disorder) HTN (hypertension) Brother Active asthma Hiatal hernia Depression Maternal Grandmother Blind COPD (chronic obstructive pulmonary disease) Breast mass Brain tumor Lung mass Atrial fib/flutter, transient Depression Anxiety Paternal Grandmother History of quadruple bypass Dementia Skin carcinoma Paternal Grandfather Cancer Skin carcinoma Maternal Grandfather Skin melanoma Surgical History Surgical History H/O colonoscopy H/O esophagogastroduodenoscopy H/O tooth extraction Social History Social History Patient Tobacco Use Status: Former Tobacco user Quit Date: 2019 Tobacco use type: Cigarette Years Smoked: 7 Meds Allergies Allergy/AdvReac Type Severity Reaction Status Date / Time Seasonal Allergies Allergy Mild runny Verified 09/08/22 11:36 nose, sinus infection, congestion Home Medications Medication Instructions Recorded Confirmed Last Taken Type loratadine 10 mg tablet 10 mg PO DAILY 10/06/20 10/06/20 Unknown History multivitamin 1 tab PO DAILY 10/06/20 10/06/20 Unknown History phenylephrine HCl 10 mg tablet 10 mg PO DAILY 10/06/20 10/06/20 Unknown History (Sudafed PE) escitalopram oxalate 10 mg tablet 20 mg PO DAILY 09/08/22 12/05/22 12/05/22 History Exam Exam Date and Time: December 04, 2022 1044 Height,Weight and Vital Signs: Height 5 ft 4 in Weight 94.801 kg Pertinent Lab Results Pertinent Lab Results: Laboratory Tests 09/03/22 09/03/22 08:20 08:21 WBC 6.3 Hgb 15.0 Hct 46.0 Plt Count 318 Sodium 141 Potassium 4.2 Chloride 105 Carbon Dioxide 26 BUN 9 Creatinine 0.83 Assessment and Plan Assessment Anesthesia Assessment: Chart Reviewed Documented by User: Mickey Lee MD 12/06/22 02:27 HPI - Anesthesia Eval Consult details Narrative: 32yo F for Colonoscopy patient recent visit to ER with URI , was discharged on Antibiotics , steriods and inhalers . Patient unable to start medications . Symptoms have partially improved . Case discussed with Dr Hinson . He will re prescribe the medications . Patient counselled to quit smoking of all kinds . [facility] Past Medical History Medical History Anemia Arthritis Concussion COVID-19 vaccine administered Degenerative lumbar disc Depression GERD (gastroesophageal reflux disease) Heavy menstrual bleeding High cholesterol Hx of renal calculi Kidney stones Mood swings Nasal inflammation Obesity Panic attacks Rheumatoid arthritis Severe anxiety Tobacco use Vitamin D deficiency Family History Family History Mother Diabetes COPD (chronic obstructive pulmonary disease) Vitamin D deficiency Active asthma Sleep apnea Father Cancer Vitamin D deficiency Depression Bipolar 1 disorder Anxiety PTSD (post-traumatic stress disorder) HTN (hypertension) Brother Active asthma Hiatal hernia Depression Maternal Grandmother Blind COPD (chronic obstructive pulmonary disease) Breast mass Brain tumor Lung mass Atrial fib/flutter, transient Depression Anxiety Paternal Grandmother History of quadruple bypass Dementia Skin carcinoma Paternal Grandfather Cancer Skin carcinoma Maternal Grandfather Skin melanoma Family history of problems with anesthesia: No Surgical History Surgical History H/O colonoscopy H/O esophagogastroduodenoscopy H/O tooth extraction History of Problems with Anesthesia: No Social History Social History Patient Tobacco Use Status: Former Tobacco user Quit Date: 2019 Tobacco use type: Cigarette Years Smoked: 7 Meds Allergies Allergy/AdvReac Type Severity Reaction Status Date / Time Seasonal Allergies Allergy Mild runny Verified 09/08/22 11:36 nose, sinus infection, congestion Home Medications Medication Instructions Recorded Confirmed Last Taken Type loratadine 10 mg tablet 10 mg PO DAILY 10/06/20 10/06/20 Unknown History multivitamin 1 tab PO DAILY 10/06/20 10/06/20 Unknown History phenylephrine HCl 10 mg tablet 10 mg PO DAILY 10/06/20 10/06/20 Unknown History (Sudafed PE) escitalopram oxalate 10 mg tablet 20 mg PO DAILY 09/08/22 12/05/22 12/05/22 History Exam Airway Mallampati Class: IV Loose/Missing/Broken Teeth: Yes Assessment and Plan Assessment Anesthesia Assessment: Anesthesia Plan Discussed Final Anesthetic Review Family History of Problems with Anesthesia: No History of Problems with Anesthesia: No NPO: Yes ASA Class: III Final Preanesthetic Review: Meds/Allgs Chart Reviewed, Consent Obtained/Reviewed and Anes Risks/Benef Reviewed Patient Risk: Intermediate Procedure Risk: Intermediate Anesthetic Plan Anesthetic Plan: MAC: and Agree w/ Assess. and Plan Disposition: Standard PACU
--- NOTE | 2022-12-05 06:19 | MHC.SHP ---
Pre-Procedural Eval Section A Date of Service: 12/05/22 Section B Chief Complaint: polyps Relevant Family History (Specify if Yes): No Relevant Social History: None (ex smoker) Present Medications: see Short Stay Collaborative assessment Medical History: Significant History (Anemia Arthritis Concussion COVID-19 vaccine administered Degenerative lumbar disc Depression GERD (gastroesophageal reflux disease) Heavy menstrual bleeding High cholesterol Hx of renal calculi Kidney stones Mood swings Nasal inflammation Obesity Panic attacks Rheumatoid arthritis Severe anxiety To) History of Previous Operations: Relevant previous surgery/procedure and date(s) (H/O colonoscopy H/O esophagogastroduodenoscopy H/O tooth extraction) Allergies: Allergies Allergy/AdvReac Type Severity Reaction Status Date / Time Seasonal Allergies Allergy Mild runny Verified 09/08/22 11:36 nose, sinus infection, congestion Review of Systems Sugical H&P ROS: Negative: Constitution, Cardiovascular, Respiratory, Neurological, Psychiatric, Hem-Onc, Allergic/Immunologic, Gastrointestinal, Genitourinary, Musculoskeletal, Integumentary, Endocrine and Eyes/Ears/Nose/Throat Exam Surgical H&P Exam: Normal: HEENT, Normal: Heart, Normal: Lungs, Normal: Extremities, Normal: Abdomen, Normal: Skin and Normal: Neurological Plan Diagnosis/Plan: Unchanged I have reviewed the history and physical and performed a pertinent physical examination on my patient. No changes have occurred unless specified. Time Spent With Patient Time: Total time managing care of this patient today ____ minutes.
[2022-12-05 06:48] VITALS: BP 125/71; PULSE 72; RESP 16; TEMP 36.2; O2SAT 95
[2022-12-05 06:55] LABS: UPreg QC Valid YES; Urine Pregnancy NEGATIVE (NEGATIVE)
[2022-12-05] MEDS: Lactated Ringers 1,000 ML 100 ML IVCONT (06:56)
[2022-12-05 07:30] VITALS: PULSE 62; RESP 16; O2SAT 98
[2022-12-05] MEDS: Albuterol/Iprat 2.5/0.5MG 3 ML AMPUL.NEB INHALE (07:34)
--- NOTE | 2022-12-05 08:00 | P.OP_ITS ---
Operative Note Operative Note Date of Service: 12/05/22 Narrative: Operative Information Procedure Description: Colonoscopy Indication: hx of colon polyps Anesthesia: MAC COLONOSCOPY Instrument: Olympus variable stiffness pediatric scope 190L Colonoscopy Monitoring: Vital signs and clinical assessment, continuous EKG monitoring, Pulse oximetry, Carbon Dioxide monitoring and blood pressure monitoring were done throughout the procedure. Colon withdrawal time was [] minutes. Procedure: The patient was placed in the left lateral decubitis position and pre-procedure medications were administered. After a digital rectal examination of the ano-rectum, the video colonoscope was inserted into the rectum and advanced through the colon to the cecum/TI. The colonoscope was slowly withdrawn in a retrograde panoramic fashion and the colon mucosa was carefully examined including a retroflexed view of the rectum. Findings and interventions are described below. Procedure Difficulty: easy Findings: Terminal Ileum-normal Cecum:normal Ascending Colon: normal Transverse Colon -normal Descending Colon:normal Sigmoid Colon: normal Rectum: Retroflexion with small internal hemorrhoids, grade I Anorectum - normal Colon preparation: [place] Bowel Preparation Scale Right colon; 2 Transverse colon: 2 Left colon; 2 (0 = Unprepared colon segment with mucosa not seen due to solid stool that cannot be cleared. 1 = Portion of mucosa of the colon segment seen, but other areas of the colon segment not well seen due to staining, residual stool and/or opaque liquid. 2 = Minor amount of residual staining, small fragments of stool and/or opaque liquid, but mucosa of colon segment seen well. 3 = Entire mucosa of colon segment seen well with no residual staining, small fragments of stool or opaque liquid) Impression and Post Procedure Diagnosis: internal hemorrhoids Plan: High fiber diet leaflet Avoid straining at stool, epsom salts and sitz bath, anusol supps or cream Repeat Colonoscopy in 5-6 years due to hx of adenomatous colon polyps or earlier if clinically indicated Above findings were reviewed with the patient and relevant handouts were provided if indicated.
[2022-12-05 08:03] VITALS: BP 99/58; PULSE 88; RESP 16; TEMP 36.2; O2SAT 95
[2022-12-05 08:18] VITALS: BP 121/78; PULSE 80; RESP 17; TEMP 36.1; O2SAT 97
== END 2022-12-05 09:05 | disposition home or self-care (01) ==
PROVIDERS: Nurse Practitioner; PCP Family Medicine; Visit Provider Internal Medicine Gastroenterology
PROC: 0DJD8ZZ Inspection of Lower Intestinal Tract, Via Natural or Artificial Opening Endoscopic (ICD-10-PCS; CPT 45378; principal; 2022-12-05 07:30)
DX: Z12.11 Encounter for screening for malignant neoplasm of colon (principal); Z86.010 Personal history of colon polyps; K64.0 First degree hemorrhoids; R19.7 Diarrhea, unspecified; K21.9 Gastro-esophageal reflux disease without esophagitis; D64.9 Anemia, unspecified; E78.00 Pure hypercholesterolemia, unspecified; E55.9 Vitamin D deficiency, unspecified; M06.9 Rheumatoid arthritis, unspecified; F41.8 Other specified anxiety disorders; Z87.442 Personal history of urinary calculi; Z87.891 Personal history of nicotine dependence
CPT/HCPCS: 45378; 81025; 94640

== ENCOUNTER → 2022-12-05 06:17 | Outpatient (BNV) | payer OTHER, SELFPAY | PROVIDERS: PCP Family Medicine; Visit Provider Internal Medicine Gastroenterology | DX: Z86.010 Personal history of colon polyps (principal); K64.0 First degree hemorrhoids | CPT/HCPCS: 45378 ==

== ENCOUNTER 2023-03-28 00:22 | Emergency (ER) | payer OTHER, SELFPAY ==
[2023-03-28 00:24] VITALS: BP 149/88; PULSE 83; RESP 18; TEMP 36.9; O2SAT 99; BMI 35.2
--- NOTE | 2023-03-28 00:39 | ED_ITS ---
HPI - URI/Sore Throat General Chief Complaint: Upper Respiratory Symptoms Stated Complaint: upper resp Time Seen by Provider: 03/28/23 00:32 Source: patient Mode of arrival: ambulatory Limitations: no limitations History of Present Illness HPI Narrative: Patient is a 33-year-old female presents emergency department for evaluation of URI symptoms including sore throat, productive cough with yellow phlegm, right ear fullness. Symptom onset 1 week ago progressively worsening. 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 She reports tactile fever no chills. Denies headache, dizziness, lightheadedness, chest pain, shortness of breath, difficulty breathing minutes, vomiting, abdominal pain. Related Data Home Medications Medication Instructions Recorded Confirmed loratadine 10 mg tablet 10 mg PO DAILY 10/06/20 10/06/20 multivitamin 1 tab PO DAILY 10/06/20 10/06/20 phenylephrine HCl 10 mg tablet 10 mg PO DAILY 10/06/20 10/06/20 (Sudafed PE) escitalopram oxalate 10 mg tablet 20 mg PO DAILY 09/08/22 12/05/22 Previous Rx's Medication Instructions Recorded bisacodyl 5 mg tablet,delayed 10 mg (2 x 5 mg) PO ONCE 1 day #2 09/08/22 release (Dulcolax (bisacodyl)) tabs famotidine 20 mg tablet (Pepcid) 20 mg PO DAILY PRN abdominal 09/08/22 discomfort #30 tabs polyethylene glycol 3350 17 238 g PO ONCE 1 day #238 grams 09/08/22 gram/dose oral powder (Miralax) esomeprazole magnesium 40 mg 40 mg PO DAILY #90 caps 09/22/22 capsule,delayed release (Nexium) ondansetron 4 mg disintegrating 4 mg PO Q6-8H PRN nausea and 11/15/22 tablet vomiting #20 tabs albuterol sulfate 90 mcg/actuation 1 inh inhalation Q4-6H PRN 11/28/22 breath activated powder inhaler shortness of breath or wheezing #1 ea ondansetron 4 mg disintegrating 4 mg PO Q8-12H PRN nausea and 11/28/22 tablet vomiting #10 tabs prednisone 20 mg tablet 20 mg PO BID #10 tabs 11/28/22 azithromycin 250 mg tablet See Rx Instructions PO .COMPLEX #6 12/05/22 (Zithromax Z-[place]) tabs azithromycin 250 mg tablet See Rx Instructions PO .COMPLEX #6 03/28/23 tabs Allergies Allergy/AdvReac Type Severity Reaction Status Date / Time Seasonal Allergies Allergy Mild runny Verified 03/28/23 00:36 nose, sinus infection, congestion Review of Systems Review of Systems: Yes all other systems are reviewed and are negative PMFSH Past Medical History Attestation statement: The following information was validated with the patient. Source: old records reviewed Medical History COVID-19 vaccine administered Arthritis GERD (gastroesophageal reflux disease) Anemia Hx of renal calculi Panic attacks Vitamin D deficiency Depression Severe anxiety Mood swings Rheumatoid arthritis Nasal inflammation Heavy menstrual bleeding Concussion Obesity High cholesterol Kidney stones Tobacco use Degenerative lumbar disc Surgical History H/O colonoscopy H/O esophagogastroduodenoscopy H/O tooth extraction Family History Family History Mother Diabetes COPD (chronic obstructive pulmonary disease) Vitamin D deficiency Active asthma Sleep apnea Father Cancer Vitamin D deficiency Depression Bipolar 1 disorder Anxiety PTSD (post-traumatic stress disorder) HTN (hypertension) Brother Active asthma Hiatal hernia Depression Maternal Grandmother Blind COPD (chronic obstructive pulmonary disease) Breast mass Brain tumor Lung mass Atrial fib/flutter, transient Depression Anxiety Paternal Grandmother History of quadruple bypass Dementia Skin carcinoma Paternal Grandfather Cancer Skin carcinoma Maternal Grandfather Skin melanoma Social History Social History Patient Tobacco Use Status: Former Tobacco user Quit Date: 2019 Tobacco use type: Cigarette Years Smoked: 7 Advance Directives: No Advance Directives Information Provided: No Physical Exam Vital Signs: Vital Signs: Last Vital Signs Temp 98.4 F 03/28/23 00:24 Pulse 83 03/28/23 00:24 Resp 18 03/28/23 00:24 BP 149/88 H 03/28/23 00:24 Pulse Ox 99 03/28/23 00:24 O2 Del Method Room Air 03/28/23 00:24 BMI result Body Mass Index 35.2 Appearance: Alert.?Oriented to person, place and time. No acute distress.?Normal affect. Eyes: Pupils equal, round and reactive to light.? ENT: TM normal bilaterally. Pharynx erythematous with a few white exudates. No hypertrophy. Uvula midline. No trismus. No drooling. ? Neck: Normal inspection.? Neck supple.??No cervical adenopathy CVS: Heart sounds normal. Normal heart rate and rhythm.? Pulses normal.?? Respiratory: No respiratory distress.? Lung sounds clear to auscultation bilaterally?? Abdomen: Soft and non-tender. Normoactive bowel sounds. Skin: Skin warm and dry.? Normal skin color.? ? Extremities: No lower extremity edema.? Neuro: Moves all extremities spontaneously. Sensation intact bilaterally. No motor deficits. Ambulates with normal steady gait. Medical Decision Making Medical Decision Making [facility] Narrative: Patient is a 33-year-old female presenting for evaluation of upper respiratory symptoms. Examination not consistent with peritonsillar/ retropharyngeal abscess. No signs of Ted's angina. No respiratory distress. COVID-19 testing negative. Influenza testing negative. RSV testing negative. Strep a testing negative. At this time history and physical exam not consistent with ACS/PE/pneumonia. Well-appearing, nontoxic, afebrile, no tachycardia or tachypnea/hypoxia. Speaking clear full sentences, ambulatory with steady gait. Discussed conservative treatment including rest, hydration, Tylenol/ibuprofen as needed for fever and body aches, saline nasal spray, humidifier, [id number] cold medication. Advised to follow-up with primary care provider as needed, discussed reasons to return back to the emergency department. All questions were answered. Patient discharged home in stable condition. Provided with a return to work/school note. Differential Diagnosis Differential Diagnoses: The differential diagnosis associated with the presentation includes (As noted above) Admission/Observation Consideration of admission/observation: Escalation of care including admission/observation considered (As noted above) Lab Data [facility] Lab Attestation statement: I reviewed the patient's lab results. (As above) Labs: Lab Results 03/28/23 Range/Units 00:28 Influenza Type A (PCR) NEGATIVE (Negative) Influenza Type B (PCR) NEGATIVE (Negative) RSV RNA Qual (PCR) NEGATIVE (Negative) SARS-CoV-2 RNA (RT-PCR) NEGATIVE (Negative) S. pyogenes GrpA JAMAL Negative (Negative) External Record Review External record reviewed: Outpatient record Prescription Management I considered prescription management with: Antibiotic Chronic Conditions Patient?s care impacted by: Other (Asthma) Discharge Plan Discharge Clinical Impression: Upper respiratory infection Patient Disposition: Home, Self-Care Instructions: Upper Respiratory Infection (ED) Prescriptions: New azithromycin 250 mg tablet See Rx Instructions .ROUTE .COMPLEX Qty: 6 0RF Rx Instructions: For 250 mg dose pack: take 500 mg today (day 1), then 250 mg for 4 days (days 2-5) No Action esomeprazole magnesium [Nexium] 40 mg capsule,delayed release(DR/EC) 40 mg PO DAILY Qty: 90 3RF ondansetron 4 mg tablet,disintegrating 4 mg PO Q6-8H PRN (Reason: nausea and vomiting) Qty: 20 0RF multivitamin Tablet 1 tab PO DAILY loratadine 10 mg Tablet 10 mg PO DAILY phenylephrine HCl [Sudafed PE] 10 mg Tablet 10 mg PO DAILY azithromycin [Zithromax Z-[place]] 250 mg tablet See Rx Instructions .ROUTE .COMPLEX Qty: 6 0RF Rx Instructions: For 250 mg dose pack: take 500 mg today (day 1), then 250 mg for 4 days (days 2-5) prednisone 20 mg tablet 20 mg PO BID Qty: 10 0RF albuterol sulfate 90 mcg/actuation aerosol powdr breath activated 1 inh inhalation Q4-6H PRN (Reason: shortness of breath or wheezing) Qty: 1 0RF ondansetron 4 mg tablet,disintegrating 4 mg PO Q8-12H PRN (Reason: nausea and vomiting) Qty: 10 0RF bisacodyl [Dulcolax (bisacodyl)] 5 mg tablet,delayed release (DR/EC) 10 mg PO ONCE 1 Days Qty: 2 0RF Rx Instructions: take orally as directed prior to colonoscopy polyethylene glycol 3350 [Miralax] 17 gram/dose powder 238 g PO ONCE 1 Days Qty: 238 0RF Rx Instructions: take orally as directed prior to colonoscopy escitalopram oxalate 10 mg tablet 20 mg PO DAILY famotidine [Pepcid] 20 mg tablet 20 mg PO DAILY PRN (Reason: abdominal discomfort) Qty: 30 2RF Referrals: Apurva Monte MD [Primary Care Provider] -
[2023-03-28 00:51] LABS: IDNOW Serial# 08D9AD1C; Strep A Nucleic Acid Negative (Negative)
[2023-03-28 01:14] LABS: Influenza A PCR NEGATIVE (Negative); Influenza B PCR NEGATIVE (Negative); Resp Syncy Virus RNA Qual PCR NEGATIVE (Negative); SARS COV2 PCR INHOUSE NEGATIVE (Negative)
== END 2023-03-28 02:02 | disposition home or self-care (01) ==
PROVIDERS: Emergency Provider Internal Medicine; PCP Family Medicine
DX: J06.9 Acute upper respiratory infection, unspecified (principal); R50.9 Fever, unspecified; Z20.822 Contact with and (suspected) exposure to COVID-19; Z20.828 Contact with and (suspected) exposure to other viral communicable diseases; Z79.899 Other long term (current) drug therapy
CPT/HCPCS: 0241U; 87651; 99282; 99283

== ENCOUNTER 2025-01-26 08:14 | Outpatient (REF) | payer OTHER, SELFPAY ==
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
[2025-01-26 13:09] LABS: MANUAL DIFF FLAG NO
[2025-01-26 13:13] LABS: Hematocrit 45.0 % (37.0-47.0); Hemoglobin 14.4 g/dl (12.0-16.0); Imm Gran Abs Auto 0.03 X10*3/uL (0.00-0.03); Imm Gran Pct Auto 0.3 % (0.0-0.4); Lymphocytes Absolute Auto 3.2 X10*3/uL (1.2-4.9); Mean Corpuscular HGB Conc 32.0 g/dl (31.0-35.0); Mean Corpuscular Hemoglobin 29.0 pg (27.0-33.0); Mean Corpuscular Volume 90.7 fL (80.0-98.0); NRBC Abs Auto 0.000 X10*3/uL (0.0-0.012); NRBC Pct Auto 0.0 /100WBC (0.0-0.2); Platelet Count 414 X10*3/uL (160-400); Red Blood Count 4.96 X10*6/uL (4.20-5.50); White Blood Count 8.9 X10*3/uL (4.8-10.8)
[2025-01-26 13:19] LABS: Appearance Urine Clear; Glucose Urine UA Negative (Negative); PH 6.0 (5.0-9.0); Specific Gravity - Urine 1.020 (1.005-1.025)
[2025-01-26 13:47] LABS: Alanine Aminotransferase 25 U/L (0-31); Albumin Level 4.6 g/dL (3.5-5.0); Alkaline Phosphatase 91 U/L (39-117); Anion Gap 13 (12-20); Aspartate Amino Transferase 27 U/L (5-31); Blood Urea Nitrogen 13 mg/dL (9-16); Calcium 9.6 mg/dL (8.4-10.2); Carbon Dioxide 27 mmol/L (22-29); Chloride 102 mmol/L (96-108); Cholesterol 232 mg/dL (<200); Estimated Glomerular Filt Rate > 60; HDL Cholesterol 48 mg/dL (>40); Magnesium 2.0 mg/dL (1.6-2.6); Potassium 4.2 mmol/L (3.3-5.1); Sodium 138 mmol/L (135-145); Total Protein 8.0 g/dL (6.5-8.0); Triglycerides 97 mg/dL (<150)
[2025-01-26 13:58] LABS: Folate 12.3 ng/mL (> or = 4.0); Vitamin B12 660 pg/mL (200-900)
[2025-01-26 14:09] LABS: Microalbum/Creatinine Ratio Ur 3.9 ug/mg cr (<30)
[2025-01-27 12:28] LABS: HBS Num1 43.62 mIU/mL (0-7.99); HBsAGNum1 0.63 S/CO (0.00-0.99); HIV Num 1 0.04 S/CO (0.00-0.99); Hepatitis B Surface Antigen Negative (Negative); ~HepC Num1 0.15 S/CO (0.00-0.79); ~Hepatitis B Surface Antibody REACTIVE (Nonreactive); ~Hepatitis C Antibody Nonreactive (Nonreactive)
[2025-01-31 06:09] LABS: VITAMIN D (1,25 OH) D3 36 pg/mL; Vit D (1,25-Dihydroxy) Total 36 pg/mL (18-72); Vitamin D (1,25 OH) D2 <8 pg/mL
== END 2025-01-26 08:15 | disposition home or self-care (01) ==
LOC: HO.HKASLDS 08:14
PROVIDERS: PCP Family Medicine; Visit Provider Student in an Organized Health Care Education/Training Program
DX: E66.812 Obesity, class 2 (principal); F32.9 Major depressive disorder, single episode, unspecified; J30.9 Allergic rhinitis, unspecified; K59.00 Constipation, unspecified; R06.83 Snoring; G47.30 Sleep apnea, unspecified; G47.33 Obstructive sleep apnea (adult) (pediatric); R03.0 Elevated blood-pressure reading, without diagnosis of hypertension; Z13.1 Encounter for screening for diabetes mellitus; Z85.828 Personal history of other malignant neoplasm of skin; Z68.37 Body mass index [BMI] 37.0-37.9, adult
CPT/HCPCS: 36415; 80053; 80061; 81003; 82043; 82570; 82607; 82652; 82746; 83036; 83735; 84443; 85025; 86706; 86803; 87340; 87389; 96127

== ENCOUNTER 2025-01-26 08:14 | Outpatient (AMB) | payer OTHER, SELFPAY ==
--- NOTE | 2025-01-26 08:19 | MHC.PC.OV ---
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 Required: No Accompanied by: Self / Same As Patient Allergies Seasonal Allergies Allergy (Mild, Verified 01/26/25 08:20) runny nose, sinus infection, congestion Tobacco use date assessed: 01/26/25 Dental Screening Dental Screen Date: 01/26/25 Did you have a dental visit in the last 12 months?: No Did you have a dental problem in the last 6 months where you did not have access to dental care?: No Was dental information given to patient?: No HPI HPI Comments History of Present Illness Details Consent Patient was informed and verbally consented to the use of an ambient scribe for clinic note documentation during this visit. History of Present Illness The patient is a 34-year-old female presenting to critical access hospital care and address her depression and medication management. 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 She was previously on Lexapro 10 mg, which she last took in the summer of the previous year. She experiences irritability and has difficulty getting out of bed at least once or twice a week, but denies any suicidal or homicidal ideations. Allergic Rhinitis: The patient has a history of tonsillitis due to postnasal drip, attributed to allergies, and was advised by an ENT to manage it with antihistamines. She previously used loratadine and Flonase but is not currently taking any medications for this condition. History of Basal Cell Carcinoma: The patient had a basal cell carcinoma removed from her nose in 2020 and was advised to return if any new lesions appear. Obstructive Sleep Apnea (suspected): The patient reports snoring and waking up gasping for air, with a previous sleep study returning negative results. She experiences fatigue and has been advised to undergo a home sleep study due to concerns raised during a colonoscopy. Constipation: The patient reports constipation, which she is managing with a Metamucil regimen, resulting in improved bowel movements. Hypertension (suspected): The patient has a history of elevated blood pressure readings, including a recent high reading, and is being monitored for hypertension. Obesity: The patient has a BMI of 37.8, classifying her as class two obesity, and has a family history of cardiovascular issues. She has previously lost weight through diet and exercise but has regained weight due to stress and depression. 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 Denies suicidal or homicidal ideations. - Respiratory: Reports snoring and waking up gasping for air. Denies any recent respiratory infections. - Gastrointestinal: Reports constipation, currently managed with Metamucil. 10-point ROS reviewed and negative except as noted in HPI Past Medical History - Major Depressive Disorder - Allergic Rhinitis - History of Basal Cell Carcinoma - History of Anemia - History of Vitamin D Deficiency Health Maintenance - Referral to registered nurse post partum for weight management - Home sleep study recommended for suspected obstructive sleep apnea Physical Exam General: Well-appearing, in no acute distress. Vital signs: Blood pressure was a little high. HEENT: Normocephalic, atraumatic. PERRLA, EOMI. Conjunctiva clear, sclera anicteric. Oropharynx clear, mucous membranes moist. TMs intact bilaterally. Neck: Supple, no lymphadenopathy, no thyromegaly, no JVD or carotid bruits. Cardiovascular: RRR, normal S1/S2, no murmurs, rubs, or gallops. Peripheral pulses 2+ and symmetric. No edema. Respiratory: Lungs clear to auscultation bilaterally, no wheezes, rales, or rhonchi. Normal effort. Abdomen: Soft, non-tender, non-distended. Normoactive bowel sounds. No hepatosplenomegaly, no masses. MSK: Full range of motion, no joint swelling or deformity. Normal gait. Skin: Warm, dry, intact. No rashes, lesions, or pallor. Neuro: Alert and oriented x3. Cranial nerves II-XII intact. Strength 5/5 throughout. Sensation intact. Reflexes 2+ symmetric. Normal coordination and gait. Psych: Appropriate mood and affect. Normal judgment and insight. Reports of depression and irritability, but no suicidal or homicidal ideations. Plan 1. Major Depressive Disorder - Restart Lexapro 10 mg and follow up in two weeks to assess response and adjust dosage if necessary. 2. Allergic Rhinitis - Prescribe loratadine and Flonase for symptom management. 3. Obstructive Sleep Apnea (Suspected) - Schedule a home sleep study to evaluate for obstructive sleep apnea. 4. Constipation - Continue Metamucil regimen to manage constipation. 5. Hypertension (Suspected) - Monitor blood pressure and consider further evaluation if elevated readings persist. 6. Obesity - Referral to registered nurse post partum for weight management and lifestyle modification. Discussion Notes I discussed with the patient the plan to restart Lexapro 10 mg for her depression and the importance of follow-up in two weeks to assess the medication's effectiveness and adjust the dosage if needed. We also talked about managing her allergic rhinitis with loratadine and Flonase. I recommended a home sleep study to evaluate for obstructive sleep apnea due to her symptoms of snoring and gasping for air. We discussed her constipation management with Metamucil and the need to monitor her blood pressure due to previous high readings. I referred her to a registered nurse post partum for weight management and emphasized the importance of lifestyle modifications. Patient Instructions - Take Lexapro 10 mg as prescribed and follow up in two weeks. - Use loratadine and Flonase as directed for allergy symptoms. - Complete the home sleep study as scheduled. - Continue Metamucil for constipation management. - Monitor blood pressure regularly and report any concerns. - Follow up with the registered nurse post partum for weight management advice. Medical Decision Making The patient presents with multiple concerns, including depression, allergic rhinitis, suspected obstructive sleep apnea, constipation, and obesity. The decision to restart Lexapro was based on her history of depression and previous positive response to the medication. Allergic rhinitis will be managed with loratadine and Flonase to alleviate symptoms. A home sleep study is warranted due to her symptoms suggestive of obstructive sleep apnea, which may contribute to her fatigue and weight issues. Constipation is being effectively managed with Metamucil. Given her family history and previous high blood pressure readings, monitoring her blood pressure is crucial. Referral to a registered nurse post partum is part of a comprehensive approach to address her obesity and improve her overall health. Total time spent caring for the patient today was 30 minutes. This includes time spent before the visit reviewing the chart, time spent documenting, and time spent reviewing laboratory results, diagnostic imaging, medications, performing a medically necessary evaluation, counseling on diagnoses, care coordination, ordering appropriate tests, ordering appropriate medications. [facility] Medical History (Updated 01/26/25 @ 08:59 by Benjamín Ross MD) Sleep apnea Class 2 obesity COVID-19 vaccine administered Arthritis GERD (gastroesophageal reflux disease) Anemia Hx of renal calculi Panic attacks Vitamin D deficiency Depression Severe anxiety Mood swings Rheumatoid arthritis Nasal inflammation Heavy menstrual bleeding Concussion Obesity High cholesterol Kidney stones Tobacco use Degenerative lumbar disc Surgical History H/O colonoscopy H/O esophagogastroduodenoscopy H/O tooth extraction Family History Mother Diabetes COPD (chronic obstructive pulmonary disease) Vitamin D deficiency Active asthma Sleep apnea Father Cancer Vitamin D deficiency Depression Bipolar 1 disorder Anxiety PTSD (post-traumatic stress disorder) HTN (hypertension) Brother Active asthma Hiatal hernia Depression Maternal Grandmother Blind COPD (chronic obstructive pulmonary disease) Breast mass Brain tumor Lung mass Atrial fib/flutter, transient Depression Anxiety Paternal Grandmother History of quadruple bypass Dementia Skin carcinoma Paternal Grandfather Cancer Skin carcinoma Maternal Grandfather Skin melanoma Social History (Updated 01/26/25 @ 08:34 by Tamanna Mayes MA) Housing: Apartment Alcohol intake: current Alcohol intake frequency: a few times a week Patient Tobacco Use Status: Never used Tobacco Tobacco use type: Cigarette e-Cigarette/Vaping Use: Currently Using service: No Current occupational status: employed Cognitive needs: No Hearing needs: No Vision needs: Yes (rx glasses) Questionnaire PHQ-9 Over the last 2 weeks, how often have you been bothered by any of the following problems? 1. Little interest or pleasure in doing things: more than half the days 2. Feeling down, depressed, or hopeless: more than half the days 3. Trouble falling or staying asleep, or sleeping too much: more than half the days 4. Feeling tired or having little energy: nearly every day 5. Poor appetite or overeating: nearly every day 6. Feeling bad about yourself - or that you are a failure or have let yourself or your family down: more than half the days 7. Trouble concentrating on things, such as reading the newspaper or watching television: nearly every day 8. Moving or speaking so slowly that other people could have noticed. Or the opposite - being so fidgety or restless that you have been moving around a lot more than usual: several days 9. Thoughts that you would be better off or of hurting yourself in some way: not at all Total score: 18 Source: Developed by Drs. Jase Madden, Darya Recinos, Vaughn Talley and colleagues, with an educational eder from [employer]. Thrive Questionnaire I am a: Patient What is your living situation today?: I have a steady place to live Within the past 12 months, did the food you bought not last and you didn't have the money to get more?: I choose not to answer this question Within the past 12 months, did you worry whether your food would run out before you got money to buy more?: I choose not to answer this question Do you have trouble paying for medicines?: I choose not to answer this question Do you have trouble getting transportation to medical appointments?: No Do you have trouble paying your heating and electricity bill?: No Do you have trouble taking care of your child, family member or friend?: No Do you have trouble with day-to-day activities such as bathing, preparing meals, shopping, managing finances, etc.?: I choose not to answer this question Are you currently unemployed and looking for a job?: No Are you interested in more education?: No Please select the resources that you would like help with: None Currently or been in a relationship where the following occur: I choose not to answer THRIVE Score: 0 AUDIT C Alcohol Use Questionnaire (AUDIT-C) 1. How often do you have a drink containing alcohol?: 2-4 times a month 2. How many drinks containing alcohol do you have on a typical day when you are drinking?: 3 or 4 3. How often do you have six or more drinks on one occasion?: Never Total Score: 3 REANNA-7 AMB Questionnaire REANNA-7 Feeling nervous, anxious, or on edge: 3 = Nearly every day Not being able to stop or control worryin = Nearly every day Worrying too much about different things: 2 = More than half the days Trouble relaxin = Nearly every day Being so restless that it is hard to sit still: 1 = Several days Becoming easily annoyed or irritable: 1 = Several days Feeling afraid as if something awful might happen: 1 = Several days Total REANNA-7 score (0-4 normal; 5-9 mild; 10-14 moderate; 15-21 severe): 14 Source: Developed by Drs. Jase Madden, Darya Recinos, Vaughn Talley and colleagues, with an educational eder from [employer]. Physical exam (Primary Care) Vital Signs: Last Vital Signs Temp 97.9 F 01/26/25 08:35 Pulse 72 01/26/25 08:35 Resp 16 01/26/25 08:35 BP 135/83 01/26/25 08:35 Pulse Ox 97 01/26/25 08:35 Oxygen Delivery Method Room Air 01/26/25 08:35 BMI result Body Mass Index 37.8 Tobacco/Smoking Status: Tobacco use Status Tobacco use date assessed 01/26/25 01/26/25 08:28 Patient Tobacco Use Status Never used Tobacco 01/26/25 08:37 Tobacco use type Cigarette 01/26/25 08:34 e-Cigarette/Vaping Use Currently Using 01/26/25 08:37 PHQ-9: PHQ-9 Score PHQ-9: Total score 18 01/26/25 08:28 Currently or been in a relationship where the following occur: I choose not to answer Coding Level of Care Code New Pt Level 4 ([id number]) Diagnoses Class 2 obesity E66.812 Snoring R06.83 Sleep apnea G47.30 Major depressive disorder F32.9 Allergic rhinitis J30.9 History of basal cell carcinoma Z85.828 Obstructive sleep apnea G47.33 Constipation K59.00 Elevated blood pressure reading without diagnosis of hypertension R03.0 Assessment & Plan Assessment & Plan (1) Class 2 obesity: Code(s): E66.812 - Obesity, class 2 Category: Medical (2) Snoring: Code(s): R06.83 - Snoring Category: Medical (3) Sleep apnea: Code(s): G47.30 - Sleep apnea, unspecified Category: Medical (4) Major depressive disorder: Code(s): F32.9 - Major depressive disorder, single episode, unspecified (5) Allergic rhinitis: Code(s): J30.9 - Allergic rhinitis, unspecified (6) History of basal cell carcinoma: Code(s): Z85.828 - Personal history of other malignant neoplasm of skin (7) Obstructive sleep apnea: Code(s): G47.33 - Obstructive sleep apnea (adult) (pediatric) (8) Constipation: Code(s): K59.00 - Constipation, unspecified (9) Elevated blood pressure reading without diagnosis of hypertension: Code(s): R03.0 - Elevated blood-pressure reading, without diagnosis of hypertension Plan Orders: Orders Complete Blood Count Auto Diff Today Z13.9 - Encounter for screening, unspecified Comprehensive Met. Panel Today Z13.9 - Encounter for screening, unspecified Hepatitis B Surface Antibody Today Z13.9 - Encounter for screening, unspecified Hepatitis B Surface Antigen Today Z13.9 - Encounter for screening, unspecified Hepatitis C Antibody Today Z13.9 - Encounter for screening, unspecified Lipid Panel Today Z13.9 - Encounter for screening, unspecified Microalbumin, Random (w Creat) Today Z13.9 - Encounter for screening, unspecified UA CC w/rflx Micro + Cult Today Z13.9 - Encounter for screening, unspecified Hemoglobin A1c Today Z13.9 - Encounter for screening, unspecified HIV Ab/Ag Today Z13.9 - Encounter for screening, unspecified Magnesium Today Z13.9 - Encounter for screening, unspecified TSH reflex Free T4 Today Z13.9 - Encounter for screening, unspecified Vitamin B12 and Folate Today Z13.9 - Encounter for screening, unspecified Vitamin D 1,25 dihydroxy Today Z13.9 - Encounter for screening, unspecified RT home sleep study Today E66.812 - Obesity, class 2, G47.30 - Sleep apnea, unspecified, R06.83 - Snoring Referrals Nurse Navigator Referral E66.812 - Obesity, class 2 Medications: New fluticasone propionate 50 mcg/actuation administer into each nostril 2 sprays intranasal DAILY 16 grams 0RF escitalopram oxalate 10 mg PO DAILY 30 tabs 0RF loratadine 10 mg PO DAILY 90 tabs 0RF
[2025-01-26 08:35] VITALS: BP 135/83; PULSE 72; RESP 16; TEMP 36.6; O2SAT 97; BMI 37.8
== END 2025-01-26 09:04 | disposition home or self-care (01) ==
LOC: HO.HMCFMS 08:15
PROVIDERS: PCP Family Medicine; Visit Provider Student in an Organized Health Care Education/Training Program
DX: E66.812 Obesity, class 2 (principal); R06.83 Snoring; G47.30 Sleep apnea, unspecified; F32.9 Major depressive disorder, single episode, unspecified; J30.9 Allergic rhinitis, unspecified; Z85.828 Personal history of other malignant neoplasm of skin; G47.33 Obstructive sleep apnea (adult) (pediatric); K59.00 Constipation, unspecified; R03.0 Elevated blood-pressure reading, without diagnosis of hypertension

== ENCOUNTER 2025-02-11 08:58 | Outpatient (AMB) | payer OTHER, SELFPAY ==
--- NOTE | 2025-02-11 09:00 | A.OFFPC_ITS ---
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 Hypercholesterolemia: Recent lab results showed a total cholesterol of 232 mg/dL and an LDL of 165 mg/dL, both of which are elevated. Her triglycerides were within the normal range, below 150 mg/dL. Since her last visit, the patient initiated lifestyle modifications including exercising for at least 30 minutes on the treadmill, changing her breakfast to oatmeal, reducing cheese intake, and consuming homemade salads with spinach and kale. She has also reduced her rice consumption to a quarter cup of natasha rice per serving. Anxiety: The patient was restarted on Lexapro two weeks ago and reports feeling stable, without any worsening of symptoms. Allergic Rhinitis: The patient is taking fluticasone and loratadine for nasal symptoms. She reports a recent onset of significant nasal discharge over the past week, which she believes is her body adjusting to the medications. For symptomatic relief, she has been using saline spray, steam inhalation, and consuming spicy foods. Sleep Disorder, unspecified: A referral was previously made to a sleep specialist ( [facility] ), but the patient has not yet received a call and plans to contact them. Medications: - Lexapro, restarted two weeks ago for a nxiety. - Fluticasone nasal spray for congestion . - Loratadine for allergies. - Fish Oil supplement. Social History: - Exercise: Reports starting to use the treadmill for a minimum of 30 minutes daily. - Nutrition: The patient has actively mo dified her diet by changing her breakfast to oatmeal, reducing cheese intake, and preparing homemade salads with spinach and kale. - She has also reduced her portion of ja smine rice to a quarter cup. Diagnostic Results: - CBC: White blood cells, red blood cell s, hemoglobin, and hematocrit are normal. - Platelets: Slightly elevated, not clin ically concerning. - CMP: Sodium, potassium, chloride, hernan l function, liver function, and calcium are normal. - Lipid Panel: Total cholesterol 232 mg/ dL (high), LDL 165 mg/dL (high), triglycerides <150 mg/dL (normal), and HDL is good. - Vitamins: Vitamin B12, vitamin D, and folate levels are normal. - Thyroid function: Normal. - Urinalysis: Normal. - Microalbumin: Normal. - Hepatitis B Surface Antibody: Reactive , indicating immunity from prior vaccination. Past Medical History - History of anxiety, managed with Lexap ro. - History of allergic rhinitis. Health Maintenance - Lab Monitoring: Completed [employer] lab work with review of results. - Immunizations: Confirmed immunity to H epatitis B via reactive surface antibody. - Lifestyle Counseling: Discussed dietar y modifications and exercise for management of hypercholesterolemia. - Referrals: Patient has referrals to a registered dietitian and a sleep specialist. [facility] Medical History (Updated 02/11/25 @ 09:20 by Benjamín Ross MD) Allergic rhinitis Adjustment disorder with anxiety Hypercholesterolemia Sleep apnea Class 2 obesity COVID-19 vaccine administered Arthritis GERD (gastroesophageal reflux disease) Anemia Hx of renal calculi Panic attacks Vitamin D deficiency Depression Severe anxiety Mood swings Rheumatoid arthritis Nasal inflammation Heavy menstrual bleeding Concussion Obesity High cholesterol Kidney stones Tobacco use Degenerative lumbar disc Surgical History H/O colonoscopy H/O esophagogastroduodenoscopy H/O tooth extraction Family History Mother Diabetes COPD (chronic obstructive pulmonary disease) Vitamin D deficiency Active asthma Sleep apnea Father Cancer Vitamin D deficiency Depression Bipolar 1 disorder Anxiety PTSD (post-traumatic stress disorder) HTN (hypertension) Brother Active asthma Hiatal hernia Depression Maternal Grandmother Blind COPD (chronic obstructive pulmonary disease) Breast mass Brain tumor Lung mass Atrial fib/flutter, transient Depression Anxiety Paternal Grandmother History of quadruple bypass Dementia Skin carcinoma Paternal Grandfather Cancer Skin carcinoma Maternal Grandfather Skin melanoma Social History (Updated 02/11/25 @ 09:03 by Stas Mims MA) Housing: Apartment Alcohol intake: current Alcohol intake frequency: a few times a week Patient Tobacco Use Status: Never used Tobacco Tobacco use type: Cigarette e-Cigarette/Vaping Use: Currently Using service: No Current occupational status: employed Cognitive needs: No Hearing needs: No Vision needs: Yes (rx glasses) Questionnaire Thrive Questionnaire Date Thrive assessed: 01/23/25 I am a: Patient What is your living situation today?: I have a steady place to live Within the past 12 months, did the food you bought not last and you didn't have the money to get more?: I choose not to answer this question Within the past 12 months, did you worry whether your food would run out before you got money to buy more?: I choose not to answer this question Do you have trouble paying for medicines?: I choose not to answer this question Do you have trouble getting transportation to medical appointments?: No Do you have trouble paying your heating and electricity bill?: No Do you have trouble taking care of your child, family member or friend?: No Do you have trouble with day-to-day activities such as bathing, preparing meals, shopping, managing finances, etc.?: I choose not to answer this question Are you currently unemployed and looking for a job?: No Are you interested in more education?: No Please select the resources that you would like help with: None Currently or been in a relationship where the following occur: I choose not to answer THRIVE Score: 0 Review of Systems Narrative Review of Systems - Psychiatric: Reports feeling stable since restarting Lexapro, denies feeling worse. - HEENT: Reports recent onset of significant rhinorrhea. - Skin: Mentions being covered in bruises one week prior, which she self- attributes to the body's healing process. 10-point ROS reviewed and negative except as noted in HPI Physical exam (Primary Care) Vital Signs: Last Vital Signs Temp 98.3 F 02/11/25 09:03 Pulse 69 11/05/25 09:03 Resp 16 02/11/25 09:03 BP 138/73 02/11/25 09:03 Pulse Ox 98 02/11/25 09:03 Oxygen Delivery Method Room Air 02/11/25 09:03 BMI result Body Mass Index 37.7 Tobacco/Smoking Status: Tobacco use Status Tobacco use date assessed 01/26/25 02/11/25 09:02 Patient Tobacco Use Status Never used Tobacco 02/11/25 09:03 Tobacco use type Cigarette 02/11/25 09:03 e-Cigarette/Vaping Use Currently Using 02/11/25 09:03 Thrive Assessment: Date of Thrive Assessment Date Thrive assessed 01/23/25 02/11/25 09:02 Currently or been in a relationship where the following occur: I choose not to answer Narrative Physical Exam General: Well-appearing, in no acute distress. Vital signs: Within normal limits. HEENT: Normocephalic, atraumatic. PERRLA, EOMI. Conjunctiva clear, sclera anicteric. Oropharynx clear, mucous membranes moist. TMs intact bilaterally. Neck: Supple, no lymphadenopathy, no thyromegaly, no JVD or carotid bruits. Cardiovascular: RRR, normal S1/S2, no murmurs, rubs, or gallops. Peripheral pulses 2+ and symmetric. No edema. Respiratory: Lungs clear to auscultation bilaterally, no wheezes, rales, or rhonchi. Normal effort. Abdomen: Soft, non-tender, non-distended. Normoactive bowel sounds. No hepatosplenomegaly, no masses. MSK: Full range of motion, no joint swelling or deformity. Normal gait. Skin: Warm, dry, intact. No rashes, lesions, or pallor. Neuro: Alert and oriented x3. Cranial nerves II-XII intact. Strength 5/5 throu ghout. Sensation intact. Reflexes 2+ symmetric. Normal coordination and gait. Psych: Appropriate mood and affect. Normal judgment and insight. Coding Level of Care Code Est Pt Level 3 (32227) Diagnoses Hypercholesterolemia E78.00 Adjustment disorder with anxiety F43.22 Allergic rhinitis J30.9 Class 2 obesity E66.812 Sleep disorder G47.9 Assessment & Plan Assessment & Plan (1) Hypercholesterolemia: Code(s): E78.00 - Pure hypercholesterolemia, unspecified Category: Medical (2) Adjustment disorder with anxiety: Code(s): F43.22 - Adjustment disorder with anxiety Category: Medical (3) Allergic rhinitis: Code(s): J30.9 - Allergic rhinitis, unspecified Category: Medical (4) Class 2 obesity: Code(s): E66.812 - Obesity, class 2 Category: Medical (5) Sleep disorder: Code(s): G47.9 - Sleep disorder, unspecified Plan Consent Patient was informed and verbally consented to the use of an ambient scribe for clinic note documentation during this visit. Plan 1. Hypercholesterolemia - Based on lab results showing total cholesterol of 232 mg/dL and LDL of 165 mg/dL, the plan is to continue with lifestyle modifications. - The patient is encouraged to continue her current efforts, including 30 minutes of daily treadmill exercise and dietary changes such as eating oatmeal, reducing cheese, and increasing salad intake. - Advised patient to consider trying soft quinoa as a replacement for rice. - Patient to follow up with the registered dietitian for further guidance. - Plan to re-evaluate in 3 months. 2. Anxiety - Continue Lexapro as prescribed. - Educated the patient that full therapeutic effects may take 4 to 6 weeks. - Will follow up on progress in 3 months. 3. Allergic Rhinitis - The patient should continue using fluticasone and loratadine as needed for symptoms. - Reassured the patient that her recent increase in nasal discharge may be her body adjusting to the medications. - Supportive care measures like saline spray and steam inhalation are appropriate. 4. Sleep Disorder, Unspecified - The patient was instructed to contact the sleep specialist's office ([facility]) to follow-up on her referral. Discussion Notes I reviewed the patient's recent lab results with her. I explained that while her platelets were slightly high, it was not concerning. We discussed her hypercholesterolemia, with a total cholesterol of 232 and LDL of 165, and agreed that it can be managed with lifestyle modifications at this time. I acknowledged the positive dietary and exercise changes she has already made and provided additional suggestions, such as trying quinoa. I also clarified that her reactive hepatitis B surface antibody indicates immunity from vaccination and not active disease. We confirmed she has a referral to a registered dietitian and she needs to call them back. Additionally, she will follow up with the sleep specialist's office regarding her pending consultation. We agreed to a follow-up visit in three months to reassess her progress. Patient Instructions - Continue taking your Lexapro. - It can take 4-6 weeks to feel the full effects. - Continue with your healthy diet and exercise changes to help lower your cholesterol, including 30 minutes on the treadmill, eating oatmeal, and reducing cheese. - You can try using quinoa as a healthy substitute for rice. - Please call the registered dietitian's office back today. - Please call the sleep specialist ([facility]) to follow up on your referral. - Continue using your nasal medications. - The increased drainage you're experiencing may be your body getting used to them. - We will schedule a follow-up visit in about three months. Medical Decision Making The patient is a 34-year-old female presenting for a review of her lab results. The main finding was hypercholesterolemia, with a total cholesterol of 232 mg/dL and LDL of 165 mg/dL. Given her age and the level of elevation, along with her motivation, management with lifestyle modifications is the appropriate initial approach. The patient recently restarted Lexapro and reports feeling stable, so continuation of this medication is warranted. I educated her on the typical 4-6 week timeframe for full psychological effect. Her new-onset rhinorrhea is likely related to her body adjusting to her medications, including Lexapro, and does not require a change in therapy at this time. The plan is to continue current management, encourage the patient to follow up with her pending dietitian and sleep specialist referrals, and reassess in three months. Total time spent caring for the patient today was 20 minutes. This includes time spent before the visit reviewing the chart, time spent documenting, and time spent reviewing laboratory results, diagnostic imaging, medications, performing a medically necessary evaluation, counseling on diagnoses, care coordination.
[2025-02-11 09:03] VITALS: BP 138/73; PULSE 69; RESP 16; TEMP 36.8; O2SAT 98; BMI 37.7
--- OUTSIDE RECORDS SUMMARY | 2025-02-11 09:33 | XMS_ITS | Clinical Summary ---
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 Starting allergy shots 03/2019 [facility] Dr. Xie. Menometrorrhagia 03/13/2019 Overview (04/28/2024): One year of consistent menstrual bleeding, [id number]. Has seen GUIDANCE SERVICES COORDINATOR since then, no longer with issues. Unclear etiology, had stopped depo provera just prior to that Post concussion syndrome 03/13/2019 Overview (04/28/2024): Summer 2018 Rheumatoid arthritis ([facility] V24, [facility] V28) 03/13/2019 Overview (04/28/2024): Per patient report, notes xray at urgent care showed this Severe obesity (BMI 35.0-39. 9) with comorbidity ([facility] V24, [facility] V28) 09/21/2018 Immunizations Immunization Administration Dates Next Due DTP 10/04/1995, 3,1991,07/27,1991 [id number] (Pentacel) 2mo to less than 5yo 06/25/1992,01/05/1992,1991,05/23 [...] HISTORICAL COLONOSCOPY; COMMENT: Multiple polyps removed- at [facility] Dr.Tuyyab Deleon Medical History Medical History Date [...] 2021 DX:H. pylori infection; COMMENT: EGD at [facility] History of sleep study 05/24/2022 DX:Histor y [...] l Result * HIV Screening (05/01/2019) Pathologist [facility] HIV Screening abstracted [facility] Provider HEALTH MAINTENANCE Final Result * Hepatitis C Screening (05/01/2019) Pathologist [facility] Hepatitis C Screening abstracted Historical Provider HEALTH MAINTENANCE Final Result from Last 3 Months or Most Recently Relevant to Health Maintenance
== END 2025-02-11 09:19 | disposition home or self-care (01) ==
LOC: HO.HMCFMS 08:58
PROVIDERS: PCP Student in an Organized Health Care Education/Training Program; Visit Provider Student in an Organized Health Care Education/Training Program
DX: E78.00 Pure hypercholesterolemia, unspecified (principal); F43.22 Adjustment disorder with anxiety; J30.9 Allergic rhinitis, unspecified; E66.812 Obesity, class 2; G47.9 Sleep disorder, unspecified